=== PATIENT | female | born 1935 | race Caucasian/White ===

== ENCOUNTER → 2017-04-21 07:06 | Outpatient (CLI) | payer MEDICARE, OTHER, SELFPAY ==
[2017-04-21 09:34] LABS: Free T3 2.4 pg/mL (2.18-3.98); T4 Free Direct 1.42 ng/dL (0.76-1.46)
== END ==
PROVIDERS: Family Provider Family Medicine; PCP Family Medicine; Visit Provider Family Medicine
DX: E89.0 Postprocedural hypothyroidism (principal)
CPT/HCPCS: 36415; 84439; 84443; 84481

== ENCOUNTER → 2017-06-26 07:15 | Outpatient (CLI) | payer MEDICARE, OTHER, SELFPAY ==
[2017-06-26 09:04] LABS: Calcium,Total 8.6 mg/dL (8.5-10.1); T4 Free Direct 1.07 ng/dL (0.76-1.46); Thyroid Stim Hormone (TSH) 2.26 uIU/mL (0.358-3.74)
[2017-06-27 11:50] LABS: PTHIN 47.3 pg/mL (18.4-80.1)
== END ==
PROVIDERS: Family Provider Family Medicine; PCP Family Medicine; Visit Provider Family Medicine
DX: E03.2 Hypothyroidism due to medicaments and other exogenous substances (principal); E83.52 Hypercalcemia
CPT/HCPCS: 36415; 82310; 83970; 84439; 84443

== ENCOUNTER → 2018-02-04 10:15 | Outpatient (CLI) | payer MEDICARE, OTHER, SELFPAY ==
--- NOTE | 2018-02-04 10:21 | BI_ITS ---
MAMMOGRAPHY - BILATERAL SCREENING REASON FOR EXAM: Female, 82 years old. Routine annual screening examination. PERTINENT HISTORY: Non-contributory. TECHNIQUE: Digital bilateral breast jewel (3D mammographic acquisition) in the CC and MLO projections. 2-D mediolateral oblique (MLO) and craniocaudad (CC) views of both breasts were obtained. CAD: Full Field Digital Mammography with Computer Added Detection was performed. COMPARISON: Comparison is made with prior study dated February 03, 2017 and February 01, 2016. FINDINGS: Breast Composition: There are scattered areas of fibroglandular density. There are no dominant masses or suspicious calcifications. Stable appearance of the small bilateral axillary lymph nodes. No other significant abnormalities are identified. There has been no significant change since the prior study. BI/SCREENING MAMM (CAD), BILAT IMPRESSION: Stable bilateral screening mammogram. Yearly follow-up mammogram recommended. (A) ASSESSMENT CATEGORY: BIRADS Category 2: Benign. A letter regarding these results will be sent to the patient by the facility within 30 days. Approximately 10% of breast cancers are not detected by mammography. A normal mammogram should not delay biopsy of a clinically suspicious abnormality. [id number] Electronically Signed: Jaspreet Gustafson MD at 11:31 EST Tel [phone], Service support ,
== END ==
PROVIDERS: Family Provider Family Medicine; PCP Family Medicine; Visit Provider Family Medicine
DX: Z12.31 Encounter for screening mammogram for malignant neoplasm of breast (principal)
CPT/HCPCS: 77063; 77067

== ENCOUNTER → 2018-03-30 11:08 | Outpatient (CLI) | payer MEDICARE, OTHER, SELFPAY ==
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
[2018-03-30 15:51] LABS: Vitamin D,25 Hydroxy 41.3 ng/mL (29.95-100.01)
[2018-03-30 15:55] LABS: ALB/GLOB Ratio 1.3 RATIO (0.9-2.4); AST(SGOT) 18 U/L (15-37); Alanine Aminotransfer ALT/SGPT 30 U/L (13-56); Albumin, Serum 3.9 g/dL (3.2-5.0); Alkaline Phosphatase 66 U/L (45-117); Anion Gap 9 (5-15); BUN 26 mg/dL (7-18); BUN/Creat Ratio 34.7 RATIO (10-20); Calcium,Total 8.8 mg/dL (8.5-10.1); Chloride 108 mmol/L (98-107); Cholesterol 194 mg/dL (200); Creatinine, Serum 0.75 mg/dL (0.55-1.02); EST Glomerular Filtration Rate 79 mL/min (>60); Est Glom Filt Rate - Afr Amer 96 mL/min (>60); Globulin 3.1 g/dL (2.2-4.2); Glucose 89 mg/dL (74-106); High Density Lipoprotein 79 mg/dL; Potassium 4.1 mmol/L (3.5-5.1); Sodium Level 143 mmol/L (136-145); T4 Free Direct 1.29 ng/dL (0.76-1.46); Thyroid Stim Hormone (TSH) 1.72 uIU/mL (0.358-3.74); Triglycerides 108 mg/dL; Very Low Density Lipoprotein 22 mg/dL (5-40)
[2018-03-30 16:19] LABS: Absolute Lymphocyte Count 0.92 X10^3/ul (0.83-4.51); Absolute Neutrophil Count 4.4 X10^3/uL (2.0-7.7); Basophil# 0.04 X10^3/uL; Basophil% 0.7 % (0-1); Eosinophil# 0.09 X10^3/uL; Eosinophils% 1.5 % (0-5); Hematocrit 44.6 % (37-47); Hemoglobin 14.2 g/dl (12.0-15.0); Lymphocyte # 0.92 X10^3/ul (4.0); Lymphocyte % 15.6 % (19-41); Mean Corp Hgb Conc 31.8 g/gl (32-36); Mean Corpuscular Hgb 30.5 pg (27.0-32.0); Mean Corpuscular Volume 95.9 fL (81-99); Mean Platelet Vol. 10.6 fl (6.2-12.0); Monocyte# 0.39 X10^3/uL; Monocyte% 6.6 % (0-10); Neutrophil # 4.44 X10^3/uL (2.7-7.7); Neutrophil % 75.4 % (47-70); Platelet Count 268 K/mm3 (150-450); RBC Distribution Width CV 13.6 % (11.6-14.6); RBC Distribution Width SD 46.3 fl (35.1-43.9); Red Blood Count 4.65 M/mm3 (4.2-5.4); White Blood Count 5.9 K/mm3 (4.4-11.0)
[2018-03-30 16:35] LABS: POSITIVE COUNT NO; POSITIVE DIFFERENTIAL NO; POSITIVE MORPHOLOGY NO
== END ==
PROVIDERS: Family Provider Family Medicine; PCP Family Medicine; Referring Provider Family Medicine; Visit Provider Family Medicine
DX: I65.29 Occlusion and stenosis of unspecified carotid artery (principal); E78.00 Pure hypercholesterolemia, unspecified; E03.2 Hypothyroidism due to medicaments and other exogenous substances; M85.80 Other specified disorders of bone density and structure, unspecified site; Z51.81 Encounter for therapeutic drug level monitoring; M79.601 Pain in right arm
CPT/HCPCS: 36415; 73090; 80053; 80061; 82306; 84439; 84443; 85025

== ENCOUNTER → 2019-01-06 12:35 | Outpatient (CLI) | payer MEDICARE, OTHER, SELFPAY ==
--- NOTE | 2019-01-06 12:37 | CDU_ITS ---
Reason For Study: carotid stenosis Rt. Velocities/BP Lt. Velocities/BP Prox CCA 95.0/15.5 cm/sec. Prox CCA 100.2/14.2 cm/sec. Mid CCA 93.7/18.1 cm/sec. Mid CCA 94.1/15.5 cm/sec. Dist CCA 76.8/14.2 cm/sec. Dist CCA 87.9/14.2 cm/sec. Prox ICA 70.3/19.4 cm/sec. Prox ICA 83.4/13.4 cm/sec. Mid ICA 135.0/29.0 cm/sec. Mid ICA 102.0/16.2 cm/sec. Dist ICA 158.2/26.7 cm/sec. Dist ICA 157.6/30.8 cm/sec. Rt. ICA/CCA = 158.2/93.7=1.7. Lt. ICA/CCA = 157.6/100.2=1.6. Prox ECA 88.5/14.2 cm/sec. Prox ECA 102.1/0.0 cm/sec. Rt. Vert. 58.1/10.9 cm/sec. Lt. Vert. 60.1/9.7 cm/sec. Right Extracranial There is intimal thickening but no significant atherosclerotic plaque noted in the right common carotid artery. There is heterogeneous, irregular atherosclerotic plaque noted in the right internal carotid artery. The tortuous nature of the right internal carotid artery may result in flow velocities overestimating the degree of stenosis. There is intimal thickening but no significant atherosclerotic plaque noted in the right external carotid artery. Antegrade flow is noted in the right vertebral artery. Left Extracranial There is homogeneous, smooth atherosclerotic plaque noted in the left common carotid artery. There is heterogeneous, smooth atherosclerotic plaque noted in the left internal carotid artery. The tortuous nature of the left internal carotid artery may result in flow velocities overestimating the degree of stenosis. There is intimal thickening but no significant atherosclerotic plaque noted in the left external carotid artery. Antegrade flow is noted in the left vertebral artery. Procedure Carotid Duplex [id number]. The exam was diagnostic. Exam performed in department. Interpretation Summary Minimal irregular plague proximal right internal carotid. Very tortuous right internal carotid with 50-69% stenosis. <50% stenosis right external carotid Irregular plague within the proximal left internal carotid with tortuosity noted. 50-69% stenosis left distal internal carotid <50% stenosis left external carotid Patent, antegrade, <50% stenosis bilateral vertebrals Degree of bilateral internal carotid stenosis may be over-estimated secondary to the tortuosity present and the velocity elevations were not detected in the proximal internal carotids bilaterally No change from 09/16/16 Ordering Physician: Fredrick Frank Referring Physician: Fredrick Frank Performed By: Tashia Bacon, JOAQUÍN, RVT
== END ==
PROVIDERS: Family Provider Family Medicine; PCP Family Medicine; Referring Provider Family Medicine; Visit Provider Family Medicine
DX: I65.22 Occlusion and stenosis of left carotid artery (principal)
CPT/HCPCS: 93880

== ENCOUNTER → 2019-02-05 10:52 | Outpatient (CLI) | payer MEDICARE, OTHER, SELFPAY ==
--- NOTE | 2019-02-05 10:55 | BI_ITS ---
MAMMOGRAPHY - BILATERAL SCREENING REASON FOR EXAM: Female, 83 years old. Routine annual screening examination. PERTINENT HISTORY: Non-contributory. TECHNIQUE: Digital bilateral breast todd (3D mammographic acquisition) in the CC and MLO projections. 2-D mediolateral oblique (MLO) and craniocaudad (CC) views of both breasts were obtained. CAD: Full Field Digital Mammography with Computer Added Detection was performed. COMPARISON: Comparison is made with prior study February 04, 2018 and February 03, 2017. FINDINGS: Breast Composition: There are scattered areas of fibroglandular density. There are no dominant masses or suspicious calcifications. Stable secretory calcifications bilaterally. No other significant abnormalities are identified. There has been no significant change since the prior study. BI/SCREEN MAMM (CAD) W/TODD BILAT IMPRESSION: Stable bilateral screening mammogram. Yearly follow-up mammogram recommended. (A) ASSESSMENT CATEGORY: BIRADS Category 2: Benign. A letter regarding these results will be sent to the patient by the facility within 30 days. Approximately 10% of breast cancers are not detected by mammography. A normal mammogram should not delay biopsy of a clinically suspicious abnormality. [id number] Electronically Signed: Jaspreet Gustafson, at 13:04 EST , Service support ,
== END ==
PROVIDERS: Family Provider Family Medicine; PCP Family Medicine; Referring Provider Family Medicine; Visit Provider Family Medicine
DX: Z12.31 Encounter for screening mammogram for malignant neoplasm of breast (principal)
CPT/HCPCS: 77063; 77067

== ENCOUNTER → 2019-02-23 09:42 | Outpatient (CLI) | payer MEDICARE, OTHER, SELFPAY ==
--- NOTE | 2019-02-23 09:48 | BD_ITS ---
STUDY: DUAL ENERGY X-RAY ABSORPTIOMETRY / DXA REASON FOR EXAM: Female, 83 years old. Early menopause. Loss of height. TECHNIQUE: Bone Mineral Density (BMD) measurements of lumbar spine and bilateral hips were obtained. COMPARISON: Comparison is made with prior study dated February 18, 2017. FINDINGS: Lumbar Spine (L1-L4): g/cm2 (0.934) / T-score (-1.9) / Z-score (-0.1) Findings are suggestive of osteopenia with a moderate fracture risk. Left Femur Total: g/cm2 (0.830) / T-score (-1.4) / Z-score (0.7) Left Femoral Neck: g/cm2 (0.799) / T-score (-1.7) / Z-score (0.5) Right Femur Total: g/cm2 (0.795) / T-score (-1.7) / Z-score (0.4) Right Femoral Neck: g/cm2 (0.777) / T-score (-1.9) / Z-score (0.3) The T-Scores on the most recent prior examination were: Lumbar Spine (L1-L4): There has been worsening of bone density since the previous examination. Left Femur Total: which represents a worsening of 2%. Right Femur Total: which represents a worsening of 2.6%. BD/Dexa Bone Density Study IMPRESSION: The patient is considered osteopenic as outlined below according to World Dick Organization (WHO) criteria with a moderate fracture risk. Reference Information: The T-score is the number of standard deviations above or below the standard which is normal for young adults at their peak bone mineral density. The World Health Organization (WHO) interprets the T-scores as follows: Above -1 Normal bone density Between -1 and -2.5 Osteopenia Equal to / or below -2.5 Osteoporosis As a practical clinical guideline, osteopenia may be graded as follows: Mild -1 through -1.5 Moderate -1.6 through -2.0 Severe -2.1 through -2.4 The Z-score is the number of standard deviations above or below age-matched controls. A Z-score of less than -1.5 would be considered abnormal. References: 1. NIH Osteoporosis and Related Bone Diseases http://www.osteo.org 2. International Society for Clinical Densitometry http://www.iscd.org 3. National Osteoporosis Foundation http://www.nof.org Electronically Signed: Jaspreet Gustafson, at 12:46 EST , Service support ,
== END ==
PROVIDERS: Family Provider Family Medicine; PCP Family Medicine; Referring Provider Family Medicine; Visit Provider Family Medicine
DX: M81.0 Age-related osteoporosis without current pathological fracture (principal); Z78.0 Asymptomatic menopausal state
CPT/HCPCS: 77080

== ENCOUNTER → 2019-03-29 08:42 | Outpatient (CLI) | payer MEDICARE, OTHER, SELFPAY ==
[2019-03-29 12:24] LABS: Absolute Lymphocyte Count 1.06 X10^3/uL (0.83-4.51); Absolute Neutrophil Count 3.1 X10^3/uL (2.0-7.7); Basophil# 0.03 X10^3/uL; Basophil% 0.7 % (0-1); Eosinophil# 0.11 X10^3/uL; Eosinophils% 2.4 % (0-5); Hematocrit 43.9 % (37-47); Hemoglobin 13.8 g/dL (12.0-15.0); Lymphocyte # 1.06 X10^3/ul (4.0); Lymphocyte % 23.3 % (19-41); Mean Corp Hgb Conc 31.4 g/dL (32-36); Mean Corpuscular Hgb 30.1 pg (27.0-32.0); Mean Corpuscular Volume 95.6 fL (81-99); Mean Platelet Vol. 9.9 fl (6.2-12.0); Monocyte# 0.29 X10^3/uL; Monocyte% 6.4 % (0-10); NRBC Flagged by Analyzer 0 % (0-5); Neutrophil # 3.05 X10^3/uL (2.7-7.7); Platelet Count 254 K/mm3 (150-450); RBC Distribution Width CV 13.2 % (11.6-14.6); RBC Distribution Width SD 46.7 fl (35.1-43.9); Red Blood Count 4.59 M/mm3 (4.2-5.4); White Blood Count 4.6 K/mm3 (4.4-11.0)
[2019-03-29 12:58] LABS: Vitamin D,25 Hydroxy 41.7 ng/mL (29.95-100.01)
[2019-03-29 13:06] LABS: AST(SGOT) 18 U/L (15-37); Alanine Aminotransfer ALT/SGPT 27 U/L (13-56); Albumin, Serum 3.3 g/dL (3.2-5.0); Alkaline Phosphatase 57 U/L (45-117); Anion Gap 4 (5-15); BUN 19 mg/dL (7-18); BUN/Creat Ratio 25.7 RATIO (10-20); Calcium,Total 8.8 mg/dL (8.5-10.1); Chloride 110 mmol/L (98-107); Cholesterol 205 mg/dL (200); Creatinine, Serum 0.74 mg/dL (0.55-1.02); EST Glomerular Filtration Rate 80 mL/min (>60); Est Glom Filt Rate - Afr Amer 97 mL/min (>60); Globulin 3.3 g/dL (2.2-4.2); Glucose 94 mg/dL (74-106); High Density Lipoprotein 79 mg/dL; Protein, Total 6.6 g/dL (6.4-8.2); Sodium Level 142 mmol/L (136-145); T4 Free Direct 1.12 ng/dL (0.76-1.46); Thyroid Stim Hormone (TSH) 8.44 uIU/mL (0.358-3.74); Triglycerides 101 mg/dL; Very Low Density Lipoprotein 20 mg/dL (5-40)
== END ==
LOC: LAB.FUTURE 08:42 → BFHLAB 04-02 14:30
PROVIDERS: Family Provider Family Medicine; PCP Family Medicine; Visit Provider Family Medicine
DX: I65.29 Occlusion and stenosis of unspecified carotid artery (principal); E78.00 Pure hypercholesterolemia, unspecified; E03.2 Hypothyroidism due to medicaments and other exogenous substances; M85.80 Other specified disorders of bone density and structure, unspecified site; Z51.81 Encounter for therapeutic drug level monitoring
CPT/HCPCS: 36415; 80053; 80061; 82306; 84439; 84443; 85025

== ENCOUNTER → 2019-04-21 13:45 | Outpatient (CLI) | payer MEDICARE, OTHER, SELFPAY ==
--- NOTE | 2019-04-21 15:12 | NEURO ---
NCS and/or EMG Patient Report Ordering Doctor: Fredrick Frank DATE OF SERVICE: 04/21/19 Manuela Krause is an 83 year old female who presents for electrodiagnostic testing of the right upper limb. She reports pain from the elbow to the fingers. She denies any numbness. She reports having right shoulder pain secondary to a rotator cuff tear. Electrodiagnostic findings: The right median motor nerve demonstrates normal distal latency and amplitude with borderline reduced conduction velocity. Normal right ulnar motor response, including conduction across the elbow. Normal median ulnar F waves. Normal sensory responses. On needle EMG, all muscles tested in the right upper limb as well as the right cervical paraspinal showed no evidence of denervation with normal motor unit action potentials. Electrodiagnostic assessment: This is a normal electrodiagnostic study of the right upper limb. There is no electrodiagnostic evidence for peripheral neuropathy, including carpal tunnel syndrome. There is no electrodiagnostic evidence for cervical radiculopathy. If there are any further questions, please do not hesitate to contact me.
== END ==
PROVIDERS: Family Provider Family Medicine; PCP Family Medicine; Referring Provider Family Medicine; Visit Provider Family Medicine
DX: M79.601 Pain in right arm (principal)
CPT/HCPCS: 95886; 95910

== ENCOUNTER → 2019-05-14 14:32 | Outpatient (CLI) | payer MEDICARE, OTHER, SELFPAY ==
[2019-05-14 16:18] LABS: T4 Free Direct 1.06 ng/dL (0.76-1.46); Thyroid Stim Hormone (TSH) 3.65 uIU/mL (0.358-3.74)
== END ==
PROVIDERS: Family Provider Family Medicine; PCP Family Medicine; Visit Provider Family Medicine
DX: E03.2 Hypothyroidism due to medicaments and other exogenous substances (principal)
CPT/HCPCS: 36415; 84439; 84443

== ENCOUNTER 2019-05-28 15:00 | Outpatient (RCR) | payer MEDICARE, OTHER, SELFPAY ==
--- NOTE | 2019-04-30 13:14 | HP.PTEVAL_ITS ---
Patient's Visit Information ADA GOOD is a 83 year old F referred to Physical Therapy by Fredrick Frank DO with a diagnosis of R forearm calcific tendonitis. Date of Evaluation: 04/30/19 Physical Therapist: Jones Cooley, PT, ATC - Visit Plan Frequency: 2-3x /Week Duration: 4 Weeks Plan: R wrist extensor stretching, DTR, US, and HEP - Subjective Findings: Pt reports she has had lower R arm pain for approximately 6 months. Pt reports she has a torn rotator cuff in her R UE but has been told this pain is not from that injury. Pt reports she has been receiving injections in her shoulder for that pain. Pt reports she had to take care of her ailing until he in October of 2018, and notes that may have casued her pain. Pt also notes she fell in May of 2016 and landed on her R UE noting that may have caused this pain as well. Pt notes she is R hand dominant. Pt reports she experiences pain while playing on her nook, and has to adjust positions to aid with her pain. Pt reports she is able to perform all of her IADL's I, but notes she feels pain during the activity. 6/10 pain currently, 10/10 at worst. Pt reports sleep difficulty secondary to pain. - Pain R lower arm pain Pain Intensity (Out of 10): 6 Pain Intensity Range: 10 - Objective Neuro: B UE sensation is WNL to light touch. B bicepital reflex= 2/3. Palpation: Pt is sore along the extensor tendon barron of the R forearm. No obvious deformity present. ROM: L wrist flex= 73, ext= 60; R wrist flex= 40, ext= 55 degrees. MMT: R wwrist ext= 4-/5 and is painful. All other B UE MMT 5/5 throughout - Goals Goal 1:: Decrease R elbow pain x 50% to aid with IADL's Goal Time Frame: 4-6 Weeks Goal 2:: Increase R wrist extension strength x 1 grade to aid with IADL's Goal Time Frame: 4-6 Weeks Goal 3:: Increase R wrist flexion ROM x 5-10 degrees to aid with IADL's Goal Time Frame: 4-6 Weeks Goal 4:: I with HEP Goal Time Frame: 4-6 Weeks - Rehabilitation Potential Physical Therapy Diagnosis: R forearm pain, weakness, and limited ROM secondary to calcific tendonitis Rehabilitation Potential: Good - Anticipated Interventions Patient/Client Instruction: Educate patient on: Condition, Plan of Care For the Purpose of:: To improve self management Therapeutic Exercise to Include: Flexibilty training, Passive ROM, Active ROM For the Purpose of:: To decrease pain, To increase ROM Manual Therapy Techniques to Include: Soft tissue mobilization For the Purpose of:: To decrease pain, To increase ROM Ultrasound (thermal/non thermal): Yes For the Purpose of:: To decrease pain Thank you for the opportunity to evaluate your patient. For Medicare and Medicare HMO plans, please review the plan of care and approve it. It will need to be FAXED BACK to us at [phone] for Medicare purposes. For Medicare only, by signing this I certify the plan of care. Please let me know if there are questions or concerns regarding this plan of care. Physician Signature: Date:
--- NOTE | 2019-05-28 15:23 | HP.PTDCSUM ---
HP - PT D/C Summary It has been my pleasure to treat ADA GOOD referred by Fredrick Frank DO, with the diagnosis of R forearm calcific tendonitis for a total of 8 visit(s). Discharge Date: Please see the following information for a summary of their discharge status. - Subjective Subjective: I am feeling much better now - Pain R lower arm pain Pain Intensity (Out of 10): 1 - Overall Improvement % Improvement: 100 - Objective Objective/Function: R elbow pain 04/02. R wrist ext MMT 07/26. R wrist flexion ROM 70 degrees. Pt is I with HEP. Rx goals achieved - Goals Goal 1:: Decrease R elbow pain x 50% to aid with IADL's Goal Progress: Goal Met Goal 2:: Increase R wrist extension strength x 1 grade to aid with IADL's Goal Progress: Goal Met Goal 3:: Increase R wrist flexion ROM x 5-10 degrees to aid with IADL's Goal Progress: Goal Met Goal 4:: I with HEP Goal Progress: Goal Met - Plan Plan: Discharge - D/C Information If there are questions or concerns regarding this patient's physical therapy, please feel free to call me at [phone]. Thank you for the referral of this patient. Sincerely, Jones Cooley, PT, ATC
== END 2019-05-28 19:00 | disposition home or self-care (01) ==
LOC: PT 15:00
PROVIDERS: PCP Family Medicine; Referring Provider Family Medicine; Visit Provider Family Medicine
DX: M65.231 Calcific tendinitis, right forearm (principal)
CPT/HCPCS: 97035; 97110; 97161; 97164

== ENCOUNTER → 2019-06-02 10:33 | Outpatient (CLI) | payer MEDICARE, OTHER, SELFPAY ==
[2019-06-02 12:31] LABS: T4 Free Direct 1.34 ng/dL (0.76-1.46); Thyroid Stim Hormone (TSH) 2.11 uIU/mL (0.358-3.74)
== END ==
PROVIDERS: PCP Family Medicine; Referring Provider Internal Medicine Endocrinology, Diabetes & Metabolism; Visit Provider Internal Medicine Endocrinology, Diabetes & Metabolism
DX: E89.0 Postprocedural hypothyroidism (principal)
CPT/HCPCS: 36415; 84439; 84443

== ENCOUNTER → 2019-08-04 09:23 | Outpatient (CLI) | payer MEDICARE, OTHER, SELFPAY ==
[2019-08-04 12:49] LABS: T4 Free Direct 1.25 ng/dL (0.76-1.46); Thyroid Stim Hormone (TSH) 0.82 uIU/mL (0.358-3.74)
== END ==
PROVIDERS: PCP Family Medicine; Visit Provider Internal Medicine Endocrinology, Diabetes & Metabolism
DX: E89.0 Postprocedural hypothyroidism (principal)
CPT/HCPCS: 36415; 84439; 84443

== ENCOUNTER → 2020-02-07 12:35 | Outpatient (CLI) | payer MEDICARE, OTHER, SELFPAY ==
--- NOTE | 2020-02-07 12:38 | BI_ITS ---
MAMMOGRAPHY - BILATERAL SCREENING REASON FOR EXAM: Female, 84 years old. Routine annual screening examination. PERTINENT HISTORY: Non-contributory. TECHNIQUE: Digital bilateral breast todd (3D mammographic acquisition) in the CC and MLO projections. 2-D mediolateral oblique (MLO) and craniocaudad (CC) views of both breasts were obtained. CAD: Full Field Digital Mammography with Computer Added Detection was performed. COMPARISON: Comparison is made with prior study dated 02/05/2019 and 02/04/2018. FINDINGS: Breast Composition: The breasts are almost entirely fatty. There are no dominant masses or suspicious calcifications. Stable secretory calcifications in both breasts. No other significant abnormalities are identified. There has been no significant change since the prior study. BI/SCREEN MAMM (CAD) W/TODD BILAT IMPRESSION: Stable bilateral screening mammogram. Yearly follow-up mammogram recommended. (A) ASSESSMENT CATEGORY: BIRADS Category 2: Benign. A letter regarding these results will be sent to the patient by the facility within 30 days. Approximately 10% of breast cancers are not detected by mammography. A normal mammogram should not delay biopsy of a clinically suspicious abnormality. [id number] Electronically Signed: Jaspreet Gustafson, at 13:37 EST , Service support ,
== END ==
PROVIDERS: PCP Family Medicine; Referring Provider Family Medicine; Visit Provider Family Medicine
DX: Z12.31 Encounter for screening mammogram for malignant neoplasm of breast (principal); R89.0 Abnormal level of enzymes in specimens from other organs, systems and tissues; R94.6 Abnormal results of thyroid function studies
CPT/HCPCS: 36415; 77063; 77067; 84443

== ENCOUNTER → 2020-03-27 09:08 | Outpatient (CLI) | payer MEDICARE, OTHER, SELFPAY ==
[2020-03-27 12:54] LABS: Absolute Lymphocyte Count 1.11 X10^3/uL (0.83-4.51); Absolute Neutrophil Count 2.9 X10^3/uL (2.0-7.7); Basophil# 0.04 X10^3/uL; Basophil% 0.9 % (0-1); Eosinophil# 0.08 X10^3/uL; Eosinophils% 1.8 % (0-5); Hematocrit 41.9 % (37-47); Hemoglobin 13.3 g/dL (12.0-15.0); Lymphocyte # 1.11 X10^3/ul (4.0); Lymphocyte % 24.8 % (19-41); Mean Corp Hgb Conc 31.7 g/dL (32-36); Mean Corpuscular Hgb 30.4 pg (27.0-32.0); Mean Corpuscular Volume 95.7 fL (81-99); Mean Platelet Vol. 9.8 fl (6.2-12.0); Monocyte% 6.7 % (0-10); NRBC Flagged by Analyzer 0 % (0-5); Neutrophil # 2.94 X10^3/uL (2.7-7.7); Neutrophil % 65.6 % (47-70); Platelet Count 260 K/mm3 (150-450); RBC Distribution Width CV 13.1 % (11.6-14.6); RBC Distribution Width SD 46.3 fl (35.1-43.9); Red Blood Count 4.38 M/mm3 (4.2-5.4); White Blood Count 4.5 K/mm3 (4.4-11.0)
[2020-03-27 13:15] LABS: ALB/GLOB Ratio 1.1 RATIO (0.9-2.4); AST(SGOT) 13 U/L (15-37); Alanine Aminotransfer ALT/SGPT 27 U/L (13-56); Albumin, Serum 3.5 g/dL (3.2-5.0); Alkaline Phosphatase 60 U/L (45-117); Anion Gap 9 (5-15); BUN 20 mg/dL (7-18); BUN/Creat Ratio 29.5 RATIO (10-20); Calcium,Total 8.5 mg/dL (8.5-10.1); Chloride 109 mmol/L (98-107); Cholesterol 218 mg/dL (200); Creatinine, Serum 0.68 mg/dL (0.55-1.02); EST Glomerular Filtration Rate 88 mL/min (>60); Est Glom Filt Rate - Afr Amer 107 mL/min (>60); Globulin 3.2 g/dL (2.2-4.2); Glucose 88 mg/dL (74-106); High Density Lipoprotein 80 mg/dL; Potassium 3.8 mmol/L (3.5-5.1); Protein, Total 6.7 g/dL (6.4-8.2); Sodium Level 142 mmol/L (136-145); Triglycerides 99 mg/dL; Very Low Density Lipoprotein 20 mg/dL (5-40)
[2020-03-27 15:58] LABS: Vitamin D,25 Hydroxy 29.6 ng/mL
[2020-03-27 16:08] LABS: Microalbumin,Random Urine 25.8 mg/L (NO RANGE EST.); Microalbumin:Creatinine Ratio 13.7 mg/g CRE (<30 mg/g CRE)
== END ==
PROVIDERS: PCP Family Medicine; Visit Provider Family Medicine
DX: I10 Essential (primary) hypertension (principal); E78.00 Pure hypercholesterolemia, unspecified; E55.9 Vitamin D deficiency, unspecified; Z51.81 Encounter for therapeutic drug level monitoring
CPT/HCPCS: 36415; 80053; 80061; 82043; 82306; 82570; 85025

== ENCOUNTER 2020-04-13 13:35 | Outpatient (RCR) | payer MEDICARE, OTHER, SELFPAY | END 2020-04-13 23:59 | LOC: IMMUN 13:35 | PROVIDERS: PCP Family Medicine; Visit Provider Family Medicine | DX: Z23 Encounter for immunization (principal) | CPT/HCPCS: 0011A; 0012A; 91301 ==

== ENCOUNTER 2020-05-10 18:27 | Emergency (ER) | payer OTHER, MEDICARE, SELFPAY ==
[2020-05-10 18:28] VITALS: BP 155/74; PULSE 82; RESP 16; TEMP 35.8; O2SAT 97; BMI 24.0
[2020-05-10 18:30] VITALS: BP 155/74; PULSE 85; RESP 16; TEMP 35.8; O2SAT 97
--- NOTE | 2020-05-10 19:22 | CT_ITS ---
STUDY: CT CERVICAL SPINE WITHOUT CONTRAST REASON FOR EXAM: Female, 84 years old. REAR-ENDED, NO COMPLAINTS RADIATION DOSAGE (If Supplied By Facility): CTDIvol = ( 11.85 ) mGy, DLP = ( 224.12 ) mGycm TECHNIQUE: High resolution transaxial imaging was performed without contrast material. Sagittal and coronal images were reconstructed. Individualized dose optimization techniques were used for this CT. COMPARISON: None FINDINGS: Normal craniovertebral junction. Normal anterior atlantoaxial articulation. Normal odontoid process. There is an exaggerated cervical lordosis. No acute fracture. Normal vertebral bodies and posterior osseous elements. C2-3: Normal endplates. Normal disc height and morphology. Normal central canal and intervertebral neuroforamina. C3-4: Normal endplates. Normal disc height and morphology. Facet spurring. Normal central canal and intervertebral neuroforamina. C4-5: Normal endplates. Normal disc height and morphology. Facet spurring on the right more than the left. Normal central canal and intervertebral neuroforamina. C5-6: Normal endplates. Normal disc height and morphology. Mild facet spurring. Normal central canal and intervertebral neuroforamina. C6-7: Mild spurring. Normal central canal and intervertebral neuroforamina. C7-T1: Normal endplates. Normal disc height and morphology. Normal central canal and intervertebral neuroforamina. Normal visualized soft tissue structures. There are atherosclerotic calcifications. CT/Spine Cervical without Contras IMPRESSION: Multilevel degenerative changes, as described above. Electronically Signed: Darell Agosto MD at 20:00 EST , Service support ,
--- NOTE | 2020-05-10 19:22 | CT_ITS ---
STUDY: CT BRAIN WITHOUT CONTRAST REASON FOR EXAM: Female, 84 years old. REAR-ENDED, NO COMPLAINTS RADIATION DOSAGE (If Supplied By Facility): CTDIvol = ( 44.99 ) mGy, DLP = ( 779.24 ) mGycm TECHNIQUE: Transaxial CT imaging of the brain was performed without administration of intravenous contrast material. Individualized dose optimization techniques were used for this CT. COMPARISON: No relevant priors. FINDINGS: Normal soft tissue structures. Normal calvarium. Normal size ventricles and extra-axial spaces for the patient''s age. There are mild areas of decreased attenuation within the white matter tracts of the supratentorial brain, consistent with microvascular disease changes. Normal basal ganglia and thalami. Normal brainstem. Normal cerebellum. There is no intracranial hemorrhage. There are no findings of an acute ischemic infarction. Normal visualized paranasal sinuses. CT/Brain/Head without Contrast IMPRESSION: Chronic involutional changes of the brain. Electronically Signed: Darell Agosto MD at 19:55 EST , Service support ,
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
[2020-05-10 21:05] VITALS: PULSE 68; RESP 18; O2SAT 98
== END 2020-05-10 21:06 | disposition home or self-care (01) ==
PROVIDERS: Emergency Provider Student in an Organized Health Care Education/Training Program; PCP Family Medicine
DX: S16.1XXA Strain of muscle, fascia and tendon at neck level, initial encounter (principal); R51.9 Headache, unspecified; E78.5 Hyperlipidemia, unspecified; K21.9 Gastro-esophageal reflux disease without esophagitis; Z87.891 Personal history of nicotine dependence; V89.2XXA Person injured in unspecified motor-vehicle accident, traffic, initial encounter
CPT/HCPCS: 70450; 72125; 99282

== ENCOUNTER → 2020-08-03 09:31 | Outpatient (CLI) | payer OTHER, MEDICARE, SELFPAY ==
[2020-08-03 10:56] LABS: T4 Free Direct 1.19 ng/dL (0.76-1.46); Thyroid Stim Hormone (TSH) 1.07 uIU/mL (0.358-3.74)
== END ==
LOC: MTLAB 09:34
PROVIDERS: PCP Family Medicine; Referring Provider Internal Medicine Endocrinology, Diabetes & Metabolism; Visit Provider Internal Medicine Endocrinology, Diabetes & Metabolism
DX: E89.0 Postprocedural hypothyroidism (principal)
CPT/HCPCS: 36415; 84439; 84443

== ENCOUNTER → 2021-01-15 12:40 | Outpatient (CLI) | payer MEDICARE, OTHER, SELFPAY ==
--- NOTE | 2021-01-15 12:43 | CDU_ITS ---
Reason For Study: Reassess atherosclerosis Rt. Velocities/BP Lt. Velocities/BP Prox CCA 72.1/12.1 cm/sec. Prox CCA 84.9/19 cm/sec. Mid CCA 91.7/16 cm/sec. Mid CCA 76.1/14.6 cm/sec. Dist CCA 72.1/13.4 cm/sec. Dist CCA 65.1/14.6 cm/sec. Prox ICA 66.9/13.4 cm/sec. Prox ICA 57.5/15.7 cm/sec. Mid ICA 100.8/29.1 cm/sec. Mid ICA 95.6/25 cm/sec. Dist ICA 132.1/37.1 cm/sec. Dist ICA 118.3/28.6 cm/sec. Rt. ICA/CCA = 1.83. Lt. ICA/CCA = 1.55. Prox ECA 116.4/3 cm/sec. Prox ECA 77.2/2.5 cm/sec. Rt. Vert. 47.6/8 cm/sec. Lt. Vert. 55.3/14.6 cm/sec. Right Extracranial There is intimal thickening but no significant atherosclerotic plaque noted in the right common carotid artery. There is heterogeneous, irregular atherosclerotic plaque noted in the right internal carotid artery. The tortuous nature of the right internal carotid artery may result in flow velocities overestimating the degree of stenosis. There is heterogeneous, irregular atherosclerotic plaque noted in the right external carotid artery. Antegrade flow is noted in the right vertebral artery. Left Extracranial There is homogeneous, smooth atherosclerotic plaque noted in the left common carotid artery. There is heterogeneous, irregular atherosclerotic plaque noted in the left internal carotid artery. The tortuous nature of the left internal carotid artery may result in flow velocities overestimating the degree of stenosis. There is heterogeneous, irregular atherosclerotic plaque noted in the left external carotid artery. Antegrade flow is noted in the left vertebral artery. Procedure Carotid Duplex [id number]. This is a Carotid Duplex examination using B-mode, color flow and specral Doppler. Exam performed in department. VL/Carotid Duplex Ultrasound Interpretation Summary Mild irregular plaque at the proximal right internal carotid artery with less t ramos 50% stenosis. Distal right internal carotid flow velocity slight elevated but this is in an a rica of tortuosity and likely this overestimates any degree of stenosis. I still estimate at less than 50% stenosis. Less than 50% stenosis right external carotid artery Irregular plaque in the proximal left internal carotid artery with less than 50 % stenosis Less than 50% stenosis left external carotid artery Patent antegrade vertebral arteries bilaterally Likely no hemodynamically significant change from the previous examination of O ctober Ordering Physician: Fredrick Frank Referring Physician: Fredrick Frank Performed By: Apple Harley RVT
== END ==
PROVIDERS: PCP Family Medicine; Referring Provider Family Medicine; Visit Provider Family Medicine
DX: I65.23 Occlusion and stenosis of bilateral carotid arteries (principal)
CPT/HCPCS: 93880

== ENCOUNTER → 2021-02-07 10:39 | Outpatient (CLI) | payer MEDICARE, OTHER, SELFPAY ==
--- NOTE | 2021-02-07 10:42 | BI_ITS ---
MAMMOGRAPHY - BILATERAL SCREENING REASON FOR EXAM: Female, 85 years old. Routine annual screening examination. PERTINENT HISTORY: Sister with breast cancer. TECHNIQUE: Digital bilateral breast todd (3D mammographic acquisition) in the CC and MLO projections. 2-D mediolateral oblique (MLO) and craniocaudad (CC) views of both breasts were obtained. CAD: Full Field Digital Mammography with Computer Added Detection was performed. COMPARISON: Comparison is made with prior study dated 02/07/2020 and 02/05/2019. FINDINGS: Breast Composition: The breasts are almost entirely fatty. There are no dominant masses or suspicious calcifications. Stable bilateral secretory calcifications. No other significant abnormalities are identified. There has been no significant change since the prior study. BI/SCRN MAMM (CAD)W/TODD BILAT IMPRESSION: Stable bilateral screening mammogram. Yearly follow-up mammogram recommended. (A) ASSESSMENT CATEGORY: BIRADS Category 2: Benign. A letter regarding these results will be sent to the patient by the facility within 30 days. Approximately 10% of breast cancers are not detected by mammography. A normal mammogram should not delay biopsy of a clinically suspicious abnormality. [id number] Electronically Signed: Jaspreet Gustafson MD at 13:11 EST , Service support ,
== END ==
PROVIDERS: PCP Family Medicine; Referring Provider Family Medicine; Visit Provider Family Medicine
DX: Z12.31 Encounter for screening mammogram for malignant neoplasm of breast (principal)
CPT/HCPCS: 77063; 77067

== ENCOUNTER → 2021-02-27 13:55 | Outpatient (CLI) | payer MEDICARE, OTHER, SELFPAY ==
--- NOTE | 2021-02-27 13:59 | BD_ITS ---
STUDY: DUAL ENERGY X-RAY ABSORPTIOMETRY / DXA REASON FOR EXAM: Female, 85 years old. Z78.0. The patient is postmenopausal. TECHNIQUE: Bone Mineral Density (BMD) measurements of lumbar spine and bilateral hips were obtained. COMPARISON: Comparison is made with prior study of 02/23/2019. FINDINGS: Lumbar Spine (L1-L4): g/cm2 (0.902) / T-score (-1.3) / Z-score (1.5) Findings are suggestive of osteopenia with a low fracture risk. Left Femur Total: g/cm2 (0.768) / T-score (-1.4) / Z-score (0.8) Left Femoral Neck: g/cm2 (0.660) / T-score (-1.7) / Z-score (0.8) Right Femur Total: g/cm2 (0.742) / T-score (-1.6) / Z-score (0.6) Right Femoral Neck: g/cm2 (0.612) / T-score (-2.1) / Z-score (0.3) The T-Scores on the most recent prior examination were: Lumbar Spine (L1-L4): There has been worsening of bone density since the previous examination. Left Femur Total: which represents a worsening of 0.1%. Right Femur Total: which represents an improvement of 0.9%. BD/Dexa Bone Density Study IMPRESSION: The patient is considered osteopenic as outlined below according to World Dick Organization (WHO) criteria with a moderate fracture risk. There has been worsening of bone density since the previous examination. Reference Information: The T-score is the number of standard deviations above or below the standard which is normal for young adults at their peak bone mineral density. The World Health Organization (WHO) interprets the T-scores as follows: Above -1 Normal bone density Between -1 and -2.5 Osteopenia Equal to / or below -2.5 Osteoporosis As a practical clinical guideline, osteopenia may be graded as follows: Mild -1 through -1.5 Moderate -1.6 through -2.0 Severe -2.1 through -2.4 The Z-score is the number of standard deviations above or below age-matched controls. A Z-score of less than -1.5 would be considered abnormal. References: 1. NIH Osteoporosis and Related Bone Diseases www osteo.org 2. International Society for Clinical Densitometry www iscd.org 3. National Osteoporosis Foundation www nof.org Electronically Signed: Jaspreet Gustafson MD at 14:42 EST , Service support ,
== END ==
PROVIDERS: PCP Family Medicine; Referring Provider Family Medicine; Visit Provider Family Medicine
DX: Z78.0 Asymptomatic menopausal state (principal)
CPT/HCPCS: 77080

== ENCOUNTER 2021-04-03 12:50 | Outpatient (CLI) | payer MEDICARE, OTHER, SELFPAY ==
--- NOTE | 2021-04-03 12:52 | ECHOD_ITS ---
Reason For Study: MURMUR, SYNCOPE Procedure This was a 2D Doppler, Color Flow transthoracic echocardiogram. The exam was of adequate technical quality. Exam performed in department. Left Ventricle Normal LV size. Sigmoid septum. Left ventricular systolic function is normal. The estimated ejection fraction is 75 %. Diastolic function is indeterminate. No regional wall motion abnormalities noted. Right Ventricle Normal RV size. Normal systolic function. Atria Normal left atrium. Normal right atrium. No doppler evidence for ASD. Mitral Valve There is no mitral annular calcification. Normal mitral valve. Trivial mitral valve insufficiency. Tricuspid Valve Normal tricuspid valve. Mild to moderate (1-2+) tricuspid valve insufficiency. Right ventricular systolic pressure estimated to be 30 mmHg. Aortic Valve Trisinus/trileaflet aortic valve. Mild diffuse aortic valve thickening. Pulmonic Valve The pulmonic valve is not well visualized. Mild (1+) pulmonic valve insufficiency. Great Vessels Normal sized aortic root. Pericardium/Pleural No pericardial effusion. MMode/2D Measurements & Calculations LVIDd: 4.5 cm IVSd: 0.83 cm Ao root diam: 2.7 cm LVIDs: 2.9 cm LVPWd: 0.83 cm RVDd: 3.0 cm FS: 34.6 % LAV(MOD-bp): 41.1 ml LVAd ap4: 19.1 cm2 LVAd ap2: 23.3 cm2 LAV(MOD-bp) Indexed: 26.2 ml/m2 LVLd ap4: 6.7 cm LVLd ap2: 7.4 cm LAV(MOD-sp2): 33.8 ml EDV(MOD-sp4): 45.1 ml EDV(MOD-sp2): 61.1 ml LAV(MOD-sp4): 39.2 ml EDV(sp4-el): 45.9 ml EDV(sp2-el): 61.9 ml LVAs ap4: 11.2 cm2 LVAs ap2: 10.8 cm2 LVLs ap4: 5.4 cm LVLs ap2: 5.3 cm ESV(MOD-sp4): 21.5 ml ESV(MOD-sp2): 19.2 ml ESV(sp4-el): 19.6 ml ESV(sp2-el): 18.9 ml EF(MOD-sp4): 52.3 % EF(MOD-sp2): 68.6 % EF(sp4-el): 57.4 % SV(MOD-sp4): 23.6 ml SV(MOD-sp2): 41.9 ml SV(sp4-el): 26.3 ml LA dimension(2D): 3.2 cm LA A4 area: 13.3 cm2 RA A4 area: 9.1 cm2 Time Measurements MV dec time: 0.19 sec Doppler Measurements & Calculations MV E max qasim: 84.0 cm/sec Lat Peak E' Qasim: 5.3 cm/sec Med Peak E' Qasim: 8.7 cm/sec MV A max qasim: 98.8 cm/sec E/E' lat: 15.7 E/E' med: 9.6 MV E/A: 0.85 Ao V2 max: 131.9 cm/sec LV V1 max: 89.7 cm/sec PA V2 max: 102.5 cm/sec Ao max P.0 mmHg LV V1 max P.2 mmHg PI dec slope: 153.8 cm/sec2 TR max qasim: 259.3 cm/sec TR max P.9 mmHg ECHO/Echo Complete Interpretation Summary Left ventricular systolic function is normal. The estimated ejection fraction is 75 %. Sigmoid septum. Trivial mitral valve insufficiency. Mild to moderate (1-2+) tricuspid valve insufficiency. Mild diffuse aortic valve thickening. Mild (1+) pulmonic valve insufficiency. Right ventricular systolic pressure estimated to be 30 mmHg. Diastolic function is indeterminate. Ordering Physician: Fredrick Frank Referring Physician: Fredrick Frank Performed By: Tashia Bacon, JOAQUÍN, RVT
== END 2021-04-03 23:59 | disposition short-term general hospital (02) ==
LOC: CVS 12:51
PROVIDERS: PCP Family Medicine; Referring Provider Family Medicine; Visit Provider Family Medicine
DX: R55 Syncope and collapse (principal); R01.1 Cardiac murmur, unspecified
CPT/HCPCS: 93306

== ENCOUNTER 2021-04-11 12:45 | Outpatient (CLI) | payer MEDICARE, OTHER, SELFPAY | END 2021-04-11 23:59 | disposition short-term general hospital (02) | LOC: PSN 12:46 | PROVIDERS: PCP Family Medicine; Referring Provider Family Medicine; Visit Provider Family Medicine | DX: R55 Syncope and collapse (principal); R01.1 Cardiac murmur, unspecified | CPT/HCPCS: 93225; 93226 ==

== ENCOUNTER 2021-04-30 13:40 | Outpatient (CLI) | payer MEDICARE, OTHER, SELFPAY ==
--- NOTE | 2021-04-30 13:43 | CT_ITS ---
HISTORY: Syncope. TECHNIQUE: Multiple axial images were obtained of the brain without intravenous contrast. Routine [place]/brain and carotid CT angiogram protocol also performed with IV contrast. Nascet criteria using the distal ICAs for comparison were used for evaluation of stenoses. 2D/3D reconstructions were reviewed. A radiation dose optimization technique was used for this scan. IV Contrast dosage and agent: 100 mL Isovue 370. Number of images including paperwork: 347. COMPARISON: None. FINDINGS: BRAIN PARENCHYMA: Chronic small vessel ischemic gliosis. INTRACRANIAL HEMORRHAGE: No acute intracranial hemorrhage. CSF SPACES/MASS EFFECT: Mild generalized volume loss without significant midline shift or mass effect. ORBITS: Bilateral lens resections. CALVARIUM: Intact. PARANASAL SINUSES/MASTOID AIR CELLS: Chronic sphenoid sinusitis. CTA head- ICAs: No significant stenosis at the intracranial/visualized segments. ACAs: No significant stenosis at the visualized segments. MCAs: No significant stenosis at the visualized segments. nitroglycerin neutralizer: No significant stenosis at the visualized segments. BASILAR ARTERY: No significant stenosis. VERTEBRAL ARTERIES: No significant stenosis at the intradural/visualized segments. 2 mm left PICA origin aneurysm. CTA neck- RIGHT CCA/ICA: Mild calcified plaque at the common carotid bifurcation extending into the origin of the internal carotid artery. No occlusion or significant stenosis. LEFT CCA/ICA: Mild calcified plaque at the common carotid bifurcation extending into the origin of the internal carotid artery. No occlusion, significant stenosis or dissection. RIGHT VERTEBRAL ARTERY: No occlusion, significant stenosis or dissection. LEFT VERTEBRAL ARTERY: No occlusion, significant stenosis or dissection. Tortuous proximally. Minimal calcified plaque distally. AORTIC ARCH AND BRANCHES: Mild atherosclerosis. CT/CTA Head AND Neck W/ Contrast IMPRESSION: No acute intracranial process identified. Small left PICA aneurysm. No evidence for significant stenosis or occlusion in the [place] region. No evidence for significant stenosis in the carotid or vertebral arteries of the neck. Individualized dose optimization techniques were used for this CT. at 1510 Reported and signed by: Crys Magana MD Electronically Signed: Crys Magana MD at 15:09 EST Reading Location ID and State: [facility] / [place] Tel , Service support ,
[2021-04-30 14:21] LABS: CREATININE FINGERSTICK < 0.6 mg/dL (0.55-1.02); EGFR FINGERSTICK > 60.0000 mL/min (>60)
== END 2021-04-30 23:59 | disposition home or self-care (01) ==
LOC: CT 13:41
PROVIDERS: PCP Family Medicine; Referring Provider Family Medicine; Visit Provider Family Medicine
DX: R55 Syncope and collapse (principal); R42 Dizziness and giddiness; I65.29 Occlusion and stenosis of unspecified carotid artery
CPT/HCPCS: 70496; 70498; Q9967

== ENCOUNTER 2021-06-04 08:37 | Outpatient (CLI) | payer MEDICARE, OTHER, SELFPAY ==
--- NOTE | 2021-06-04 08:43 | RAD_ITS ---
INDICATION: DYSPHAGIA EXAMINATION/TECHNIQUE: Barium oral contrast and gas bubbles were administered to the patient. Total Fluoroscopic Time: 0.17 AND number of Fluoroscopic Images: 30 OR Radiation dosage index: COMPARISON: None. FINDINGS: Initial regulatory compliance director images demonstrate no radiopaque foreign bodies. Thin contrast was first swallow with no aspiration demonstrated. The remainder of the exam was completed using normal technique with administration of gas crystals and thick contrast. There is some fine nodular mucosal irregularity in the mid to distal esophagus which can be seen with chronic reflux esophagitis. Reflux was not elicited. No hiatal hernia. No masses or strictures are identified. Normal motility. RAD/Esophagus Single Contrast IMPRESSION: As above. Electronically Signed: Luca Bangura, at 10:35 EDT ,
== END 2021-06-04 23:59 | disposition home or self-care (01) ==
LOC: RAD 08:38
PROVIDERS: PCP Family Medicine; Referring Provider Otolaryngology; Visit Provider Otolaryngology
DX: R13.10 Dysphagia, unspecified (principal)
CPT/HCPCS: 74220

== ENCOUNTER → 2021-11-21 | Outpatient (CLI) | payer MEDICARE, OTHER, SELFPAY | END | disposition home or self-care (01) | PROVIDERS: PCP Family Medicine; Visit Provider Family Medicine | DX: U07.1 COVID-19 (principal) | CPT/HCPCS: 87635; U0003; U0005 ==

== ENCOUNTER → 2022-02-04 | Outpatient (CLI) | payer MEDICARE, OTHER, SELFPAY ==
[2022-02-04 12:31] LABS: Thyroid Stim Hormone (TSH) 4.15 uIU/mL (0.358-3.74)
== END | disposition home or self-care (01) ==
PROVIDERS: PCP Family Medicine; Visit Provider Internal Medicine Endocrinology, Diabetes & Metabolism
DX: E03.9 Hypothyroidism, unspecified (principal)
CPT/HCPCS: 36415; 84443

== ENCOUNTER → 2022-02-08 | Outpatient (CLI) | payer MEDICARE, OTHER, SELFPAY ==
--- NOTE | 2022-02-08 10:09 | BI_ITS ---
MAMMOGRAPHY - BILATERAL SCREENING REASON FOR EXAM: Female, 86 years old. Routine annual screening examination. PERTINENT HISTORY: Non-contributory. TECHNIQUE: Digital bilateral breast todd (3D mammographic acquisition) in the CC and MLO projections. 2-D mediolateral oblique (MLO) and craniocaudad (CC) views of both breasts were obtained. CAD: Full Field Digital Mammography with Computer Added Detection was performed. COMPARISON: Comparison is made with prior study dated 02/07/2021 and 02/07/2020. FINDINGS: Breast Composition: The breasts are almost entirely fatty. There are no dominant masses or suspicious calcifications. Stable bilateral secretory calcifications. Stable small benign-appearing bilateral axillary lymph nodes. No other significant abnormalities are identified. There has been no significant change since the prior study. BI/SCRN MAMM (CAD)W/TODD BILAT IMPRESSION: Stable bilateral screening mammogram. Yearly follow-up mammogram recommended. (A) ASSESSMENT CATEGORY: BIRADS Category 2: Benign. A letter regarding these results will be sent to the patient by the facility within 30 days. Approximately 10% of breast cancers are not detected by mammography. A normal mammogram should not delay biopsy of a clinically suspicious abnormality. [id number] Electronically Signed: Jaspreet Gustafson MD at 10:54 EST ,
== END | disposition home or self-care (01) ==
PROVIDERS: PCP Family Medicine; Visit Provider Family Medicine
DX: Z12.31 Encounter for screening mammogram for malignant neoplasm of breast (principal)
CPT/HCPCS: 77063; 77067

== ENCOUNTER → 2022-04-22 | Outpatient (CLI) | payer MEDICARE, OTHER, SELFPAY ==
[2022-04-22 15:37] LABS: Absolute Lymphocyte Count 0.88 X10^3/uL (0.83-4.51); Absolute Neutrophil Count 3.4 X10^3/uL (2.0-7.7); Basophil# 0.03 X10^3/uL; Basophil% 0.6 % (0-1); Eosinophil# 0.15 X10^3/uL; Eosinophils% 3.1 % (0-5); Hematocrit 44.6 % (37-47); Hemoglobin 13.9 g/dL (12.0-15.0); Lymphocyte # 0.88 X10^3/ul (0.83-4.51); Lymphocyte % 18.3 % (19-41); Mean Corp Hgb Conc 31.2 g/dL (32-36); Mean Corpuscular Hgb 29.9 pg (27.0-32.0); Mean Corpuscular Volume 95.9 fL (81-99); Mean Platelet Vol. 10.1 fl (6.2-12.0); Monocyte# 0.36 X10^3/uL; Monocyte% 7.5 % (0-10); NRBC Flagged by Analyzer 0 % (0-5); Neutrophil # 3.37 X10^3/uL (2.7-7.7); Neutrophil % 70.1 % (47-70); Platelet Count 271 K/mm3 (150-450); RBC Distribution Width CV 13.3 % (11.6-14.6); RBC Distribution Width SD 47.2 fl (35.1-43.9); Red Blood Count 4.65 M/mm3 (4.2-5.4); White Blood Count 4.8 K/mm3 (4.4-11.0)
[2022-04-22 16:06] LABS: ALB/GLOB Ratio 1.1 RATIO (0.9-2.4); AST(SGOT) 19 U/L (15-37); Alanine Aminotransfer ALT/SGPT 22 U/L (13-56); Albumin, Serum 3.6 g/dL (3.2-5.0); Alkaline Phosphatase 69 U/L (45-117); Anion Gap 9 (5-15); BUN 23 mg/dL (7-18); BUN/Creat Ratio 33.4 RATIO (10-20); Calcium,Total 9.4 mg/dL (8.5-10.1); Chloride 103 mmol/L (98-107); Cholesterol 192 mg/dL (200); Creatinine, Serum 0.69 mg/dL (0.55-1.02); EST Glomerular Filtration Rate 86 mL/min (>60); Est Glom Filt Rate - Afr Amer 104 mL/min (>60); Globulin 3.3 g/dL (2.2-4.2); Glucose 80 mg/dL (74-106); High Density Lipoprotein 83 mg/dL; Potassium 4.6 mmol/L (3.5-5.1); Protein, Total 6.9 g/dL (6.4-8.2); Sodium Level 141 mmol/L (136-145); Triglycerides 108 mg/dL; Very Low Density Lipoprotein 22 mg/dL (5-40)
== END | disposition home or self-care (01) ==
PROVIDERS: PCP Family Medicine; Visit Provider Family Medicine
DX: I10 Essential (primary) hypertension (principal); E78.00 Pure hypercholesterolemia, unspecified; E55.9 Vitamin D deficiency, unspecified; Z51.81 Encounter for therapeutic drug level monitoring
CPT/HCPCS: 36415; 80053; 80061; 82306; 85025

== ENCOUNTER → 2022-06-26 | Outpatient (CLI) | payer MEDICARE, OTHER, SELFPAY ==
[2022-06-26 16:03] LABS: Thyroid Stim Hormone (TSH) 1.91 uIU/mL (0.358-3.74)
== END | disposition home or self-care (01) ==
PROVIDERS: PCP Family Medicine; Visit Provider Internal Medicine Endocrinology, Diabetes & Metabolism
DX: E03.9 Hypothyroidism, unspecified (principal)
CPT/HCPCS: 36415; 84443

== ENCOUNTER → 2022-09-30 | Outpatient (CLI) | payer MEDICARE, OTHER, SELFPAY ==
[2022-09-30 12:46] LABS: T4 Free Direct 1.07 ng/dL (0.76-1.46); Thyroid Stim Hormone (TSH) 2.41 uIU/mL (0.358-3.74)
== END | disposition home or self-care (01) ==
PROVIDERS: PCP Family Medicine; Referring Provider Family Medicine; Visit Provider Internal Medicine Endocrinology, Diabetes & Metabolism
DX: E03.9 Hypothyroidism, unspecified (principal)
CPT/HCPCS: 36415; 84439; 84443

== ENCOUNTER → 2022-12-25 | Outpatient (CLI) | payer MEDICARE, OTHER, SELFPAY ==
[2022-12-25 15:08] LABS: Absolute Lymphocyte Count 1.16 X10^3/uL (0.83-4.51); Absolute Neutrophil Count 2.3 X10^3/uL (2.0-7.7); Basophil# 0.05 X10^3/uL; Basophil% 1.3 % (0-1); Color, Urine Yellow (Yellow); Eosinophil# 0.09 X10^3/uL; Eosinophils% 2.3 % (0-5); Glucose, Dipstick Normal (Normal); Hematocrit 43.8 % (37-47); Hemoglobin 13.6 g/dL (12.0-15.0); Ketone-Dipstick Negative (Negative); Leukocyte Esterase-Dipstick Negative /ul (Negative); Lymphocyte # 1.16 X10^3/ul (0.83-4.51); Lymphocyte % 29.7 % (19-41); Mean Corp Hgb Conc 31.1 g/dL (32-36); Mean Corpuscular Volume 96.7 fL (81-99); Mean Platelet Vol. 9.6 fl (6.2-12.0); Monocyte# 0.28 X10^3/uL; Monocyte% 7.2 % (0-10); NRBC Flagged by Analyzer 0 % (0-5); Neutrophil # 2.32 X10^3/uL (2.7-7.7); Neutrophil % 59.5 % (47-70); Nitrite-Dipstick Negative (Negative); Occult Blood-Urine Negative /ul (Negative); Platelet Count 235 K/mm3 (150-450); Protein-Dipstick Negative (Negative); RBC Distribution Width CV 13.2 % (11.6-14.6); RBC Distribution Width SD 46.9 fl (35.1-43.9); Red Blood Count 4.53 M/mm3 (4.2-5.4); Urine Bilirubin Dipstick Negative (Negative); Urine Clarity Clear (Clear); Urine Urobilinogen Normal (Normal); White Blood Count 3.9 K/mm3 (4.4-11.0)
[2022-12-25 15:45] LABS: Vitamin B12 824 pg/mL (211-911)
[2022-12-25 16:05] LABS: AST(SGOT) 21 U/L (15-37); Alanine Aminotransfer ALT/SGPT 25 U/L (13-56); Albumin, Serum 3.4 g/dL (3.2-5.0); Alkaline Phosphatase 65 U/L (45-117); Anion Gap 6 (5-15); BUN 17 mg/dL (7-18); BUN/Creat Ratio 24.5 RATIO (10-20); Calcium,Total 8.9 mg/dL (8.5-10.1); Chloride 109 mmol/L (98-107); Creatinine, Serum 0.69 mg/dL (0.55-1.02); EST Glomerular Filtration Rate 85 mL/min (>60); Est Glom Filt Rate - Afr Amer 103 mL/min (>60); Globulin 3.4 g/dL (2.2-4.2); Glucose 115 mg/dL (74-106); Potassium 3.9 mmol/L (3.5-5.1); Protein, Total 6.8 g/dL (6.4-8.2); Sodium Level 142 mmol/L (136-145); Thyroid Stim Hormone (TSH) 4.64 uIU/mL (0.358-3.74)
== END | disposition home or self-care (01) ==
LOC: BFHLAB 11:23
PROVIDERS: PCP Family Medicine; Referring Provider Internal Medicine Endocrinology, Diabetes & Metabolism; Visit Provider Family Medicine
DX: R53.83 Other fatigue (principal); R35.0 Frequency of micturition
CPT/HCPCS: 36415; 80053; 81002; 82607; 84439; 84443; 85025

== ENCOUNTER → 2022-12-26 | Outpatient (CLI) | payer MEDICARE, OTHER, SELFPAY ==
--- NOTE | 2022-12-26 13:35 | CDU_ITS ---
Reason For Study: Carotid stenosis Rt. Velocities/BP Lt. Velocities/BP Prox CCA 81.5/10.7 cm/sec. Prox CCA 85/13.5 cm/sec. Mid CCA 87.2/15.4 cm/sec. Mid CCA 83.9/16.8 cm/sec. Dist CCA 75.9/13.5 cm/sec. Dist CCA 68.5/13.5 cm/sec. Prox ICA 72.8/18.8 cm/sec. Prox ICA 63/19 cm/sec. Mid ICA 128.4/33.4 cm/sec. Mid ICA 99.4/21.9 cm/sec. Dist ICA 104.9/21.8 cm/sec. Dist ICA 106.5/20.6 cm/sec. Rt. ICA/CCA = 1.58. Lt. ICA/CCA = 1.27. Prox ECA 112.1/4.1 cm/sec. Prox ECA 98.1/6.9 cm/sec. Rt. Vert. 57/12.6 cm/sec. Lt. Vert. 50.9/14.6 cm/sec. Right Extracranial There is intimal thickening but no significant atherosclerotic plaque noted in the right common carotid artery. There is heterogeneous, irregular atherosclerotic plaque noted in the right internal carotid artery. The right internal carotid artery is very tortuous. There is heterogeneous, irregular atherosclerotic plaque noted in the right external carotid artery. Antegrade flow is noted in the right vertebral artery. Left Extracranial There is homogeneous, smooth atherosclerotic plaque noted in the left common carotid artery. There is heterogeneous, irregular atherosclerotic plaque noted in the left internal carotid artery. The left internal carotid artery is very tortuous. There is intimal thickening but no significant atherosclerotic plaque noted in the left external carotid artery. Antegrade flow is noted in the left vertebral artery. Procedure Carotid Duplex 36808. This is a Carotid Duplex examination using B-mode, color flow and specral Doppler. Exam performed in department. VL/Carotid Duplex Ultrasound Interpretation Summary Moderate (50-69%) stenosis right extracranial internal carotid. Mild (<50%) stenosis left extracranial internal carotid. Patent and antegrade vertebrals bilaterally. Ordering Physician: Fredrick Frank Referring Physician: Fredrick Frank Performed By: Apple Harley RVT
== END | disposition home or self-care (01) ==
LOC: CVS 13:31
PROVIDERS: PCP Family Medicine; Visit Provider Family Medicine
DX: I65.22 Occlusion and stenosis of left carotid artery (principal)
CPT/HCPCS: 93880

== ENCOUNTER 2023-01-05 08:53 | Emergency (ER) | payer MEDICARE, OTHER, SELFPAY ==
[2023-01-05 08:56] VITALS: BP 181/158; PULSE 88; RESP 12; TEMP 36.3; O2SAT 97; BMI 24.7
--- NOTE | 2023-01-05 09:05 | VDLE_ITS ---
Reason For Study: swelling RIGHT GSV is normal. CFV is compressible, spontaneous, phasic, competent and demonstrates normal augmentation. FV is compressible, spontaneous, phasic, competent and demonstrates normal augmentation. POP V is compressible, spontaneous, phasic, competent and demonstrates normal augmentation. T/P Trunk is compressible. PTV is compressible. RT PerV is compressible. Procedure This is a venous duplex using B-mode, color flow and spectral Doppler. Exam performed portable in ED. The exam was abbreviated due to the COVID 19 protocol. The exam was diagnostic. A preliminary report was called and/or faxed to Dr. Hicks. VL/Venous Duplex US, Unilateral Interpretation Summary Deep veins of the right lower extremity are patent and compressible segmentally . There is no evidence of right lower extremity deep vein thrombosis. The right great saphen[place] us vein appears patent and compressible segmentally. Ordering Physician: Kalpana Hicks Performed By: Israel Fernando RVT
--- NOTE | 2023-01-05 09:06 | EX.ED.DYSGE1 ---
HPI History of Present Illness Chief Complaint: Cellulitis Detail of Chief Complaint: Redness and swelling right leg Informant: patient Narrative Narrative: Patient presents with redness and swelling to the right leg that she initially noticed yesterday. Patient was unsure if she had had a bug bite or if her kitten had bitten her skin. Patient went to urgent care and they were concerned about a DVT potentially. They sent her in to be evaluated by ultrasound to rule out DVT. Patient [place] any chest pain or shortness of breath. No history of DVT or PE. She denies recent travel or surgery. She denies fevers or chills or sweats. [facility] Medical History (Updated 01/05/23 @ 10:[address] Kalpana Hicks, DO) Thyroid disease TIA (transient ischemic attack) Home Medications calcium carbonate 600 mg-vitamin D3 20 mcg (800 unit) tablet (Caltrate with Vitamin D3) 1 tab PO DAILY@0800 01/08/13 [History Last Taken Unknown] chlordiazepoxide HCl 10 mg capsule 10 mg PO TID PRN PRN Anxiety 01/08/13 [History Last Taken Unknown] multivitamin with folic acid 400 mcg tablet (Thera) 1 tab PO DAILY 01/08/13 [History Last Taken Unknown] omega-3 fatty acids-fish oil 340 mg-1,000 mg capsule 1 ea PO 01/08/13 [History Last Taken Unknown] pravastatin 20 mg tablet 20 mg PO DAILY 01/08/13 [History Last Taken Unknown] Ranitidine [Zantac] 150 mg PO BID 04/29/13 [History Last Taken Unknown] cephalexin 500 mg capsule 500 mg PO Q6 #40 CAPSULES 01/05/23 [Rx Last Taken Unknown] Allergy/AdvReac Type Severity Reaction Status Date / Time omeprazole Allergy Abd Verified 01/05/23 08:56 cramps/diarrhea pantoprazole Allergy Abd Verified 01/05/23 08:56 cramps/diarrhea Sulfa (Sulfonamide Allergy Hives Verified 01/05/23 08:56 Antibiotics) phenazopyridine HCl AdvReac Vomiting Verified 01/05/23 08:56 [From Pyridium] RSV Vaccine AdvReac Made me Uncoded 01/05/23 08:35 horribly ill Surgical History Hx of appendectomy Social History Smoking Status: Former smoker ROS ROS ED Review of Systems ROS Unobtainable: other Constitutional Constitutional ED: Reports lethargy; Denies chills, fever(s), sweats or weight loss Eyes Eyes: Denies blurry vision, change in vision or diplopia ENT ENT ED: Denies rhinorrhea or sore throat Cardiovascular Cardiovascular: Denies chest pain, orthopnea or racing heartbeat Respiratory/Chest Respiratory/Chest: Denies cough, dyspnea, dyspnea on exertion, orthopnea or sputum Gastrointestinal Gastrointestinal: Denies abdominal pain, diarrhea, nausea or vomiting Genitourinary Genitourinary ED: Denies dysuria, hematuria or urinary frequency Musculoskeletal Musculoskeletal: Denies arthralgias, back pain, myalgias or neck pain Integumentary Reports other Details: Redness and swelling to right leg ; Denies abscess, Abrasions or rash Neurologic Neurologic: Denies headache(s) or weakness Psychiatric Psychiatric: Denies anxiety, depression or suicidal thoughts Endocrine Endocrinology: Denies polydipsia, polyphagia or polyuria Hematologic/Lymphatic Hematologic/Lymphatic: Denies easy bleeding, easy bruising or lymphadenopathy Allergic/Immunologic Allergic/Immunologic ED: Denies mouth swelling, tongue swelling or urticaria EXAM Physical Exam Const Vital Signs: 01/05/23 08:56 Temperature 97.4 F L Temperature Source Temporal Pulse Rate 88 Respiratory Rate 12 Blood Pressure 181/158 H Blood Pressure Mean 165 Pulse Ox 97 Oxygen Delivery Method Room Air Positive well nourished and well developed General Appearance ED: well developed and NAD HEENT Reports TM's clear and moist mucous membranes normocephalic and atraumatic; Negative for trauma or tenderness Tympanic Membrane ED: Yes TM's clear Eyes PERRL and EOMs intact bilaterally General Eye ED: Negative for pale conjunctiva or scleral icterus Neck no lymphadenopathy, supple and no JVD General: Negative for tenderness Chest Wall inspection of chest normal and palpation of chest normal Chest: Negative for tenderness Resp normal respiratory effort and clear to auscultation bilaterally Effort and Inspection: Negative for respiratory distress or pain with movement Auscultation: Negative for rhonchi, wheezes or diminished lung sounds Cardio regular rate, regular rhythm, S1 normal heart sound, S2 normal heart sound and no murmurs Peripheral Pulses: pulses 2+ throughout GI normal to inspection, nondistended, normoactive bowel sounds, soft to palpation, non-tender, non-distended and no masses Back/Spine no CVA tenderness and no thoracic nor lumbar tenderness Extremity Extremity Narrative: Right lower extremity-patient does have some edema from just below the knee down to the ankle. There is some faint erythema noted. There is a small area of broken skin over the medial aspect of the left calf. No abscess. Neurovascularly intact. General Extremety ED: Negative for edema General Extremity: Negative for edema Neuro oriented x3, CN's II-XII intact bilaterally, no sensory deficits noted and gait normal Sensorium / Orientation: awake, alert, oriented to person, oriented to place and oriented to time Motor Exam: strength 5/5 throughout and strength abnormal Psych mental status grossly normal Skin no rashes or lesions noted and no wounds MDM MDM MDM Narrative Medical decision making narrative: Patient presents with redness and swelling to the right lower extremity since yesterday. There was concern for possibility of DVT. We will obtain a venous Doppler. Venous Doppler was negative for DVT. At this point expect likely this is more of a cellulitic etiology for her redness and swelling to her right lower extremity. Does have 1 small area of broken skin that I suspect is likely the nidus of infection. Patient will be started on Keflex. She has no systemic symptoms otherwise I do not feel she needs any lab work-up or IV antibiotics. I did outline the area of erythema with marker. Advised her to return if fever, chills, sweats, increased redness or swelling, or condition worsening way. Patient to follow-up with her primary care physician within next 3 to 5 days for a wound check patient initially was noted to have quite elevated blood pressure however on repeat blood pressure she was 150s over 80s. Patient normally not on blood pressure medicine. Discharge Plan Triage Chief Complaint: Cellulitis ED Provider: Kalpana Hicks Dx/Rx/DC Orders Clinical Impression: Cellulitis Instructions: ED Cellulitis Prescriptions: New cephalexin [cephalexin] 500 mg capsule 500 mg PO Q6 Qty: 40 0RF No Action chlordiazepoxide HCl 10 MG capsule 10 mg PO TID PRN PRN (Reason: Anxiety) pravastatin 20 MG tablet 20 mg PO DAILY omega-3 fatty acids-fish oil 1 EACH capsule 1 ea PO multivitamin with folic acid [Thera] 1 TABLET tablet 1 tab PO DAILY calcium carbonate-vitamin D3 [Caltrate with Vitamin D3] 1 TAB tablet 1 tab PO DAILY@0800 Ranitidine [Zantac] 150 MG tablet 150 mg PO BID Primary Care Provider: Fredrick Frank Referrals: Fredrick Frank DO [Primary Care Provider] - 3-5 Days Disposition Disposition: Home, Self Care Discharge Date/Time: 01/05/23 11:14
[2023-01-05] MEDS: Cephalexin 250 MG Capsule 500 MG PO (11:10)
== END 2023-01-05 11:14 | disposition home or self-care (01) ==
PROVIDERS: Emergency Provider Emergency Medicine; PCP Family Medicine; Visit Provider Emergency Medicine
DX: L03.115 Cellulitis of right lower limb (principal); Z87.891 Personal history of nicotine dependence; Z86.73 Personal history of transient ischemic attack (TIA), and cerebral infarction without residual deficits
CPT/HCPCS: 93971; 99282

== ENCOUNTER → 2023-01-09 | Outpatient (CLI) | payer MEDICARE, OTHER, SELFPAY ==
--- NOTE | 2023-01-09 13:27 | RAD_ITS ---
STUDY: X-RAY - LEFT ELBOW REASON FOR EXAM: Female, 87 years old. PAIN TECHNIQUE: 3 view(s) of the elbow. COMPARISON: None. FINDINGS: Normal visualized humerus, radius and ulna. Normal radiocapitellar and ulnotrochlear articulations. On lateral projection, there appears to be a tiny radiopaque density within the joint possibly representing a joint mouse possibly due to old trauma although may be artifactual. CT or MRI would be useful for further evaluation if indicated. RAD/Elbow min 3 Views IMPRESSION: No evidence for acute fracture or other significant bone pathology.. Cannot definitively exclude tiny joint mouse possibly due to old trauma. CT or MRI would be useful for more definitive evaluation Electronically Signed: Dagoberto Niño MD at 18:24 EDT ,
--- NOTE | 2023-01-09 13:30 | RAD_ITS ---
STUDY: X-RAY - LEFT SHOULDER REASON FOR EXAM: Female, 87 years old. PAIN TECHNIQUE: 4 view(s) of the shoulder. COMPARISON: None. FINDINGS: Narrowed glenohumeral articulation. Normal acromioclavicular joint. Normal acromion. Normal humeral head and visualized proximal humerus. The soft tissue structures are unremarkable. Normal visualized pulmonary apex. RAD/Shoulder min 2 Views IMPRESSION: Degenerative changes. No acute fracture or other significant bony pathology Electronically Signed: Dagoberto Niño MD at 18:25 EDT ,
== END | disposition home or self-care (01) ==
LOC: RAD 13:25
PROVIDERS: PCP Family Medicine; Referring Provider Family Medicine; Visit Provider Family Medicine
DX: M25.512 Pain in left shoulder (principal); M25.522 Pain in left elbow
CPT/HCPCS: 73030; 73080

== ENCOUNTER → 2023-03-04 | Outpatient (CLI) | payer MEDICARE, OTHER, SELFPAY ==
--- NOTE | 2023-03-04 13:55 | BI_ITS ---
MAMMOGRAPHY - BILATERAL SCREENING REASON FOR EXAM: Female, 87 years old. Routine annual screening examination. PERTINENT HISTORY: Non-contributory. TECHNIQUE: Digital bilateral breast todd (3D mammographic acquisition) in the CC and MLO projections. 2-D mediolateral oblique (MLO) and craniocaudad (CC) views of both breasts were obtained. CAD: Full Field Digital Mammography with Computer Added Detection was performed. COMPARISON: Comparison is made with prior study February 08, 2022 and February 07, 2021. FINDINGS: Breast Composition: The breasts are almost entirely fatty. There are no dominant masses or suspicious calcifications. Stable bilateral secretory calcification. No other significant abnormalities are identified. There has been no significant change since the prior study. BI/SCRN MAMM (CAD)W/TODD BILAT IMPRESSION: Stable bilateral screening mammogram. Yearly follow-up mammogram recommended. (A) ASSESSMENT CATEGORY: BIRADS Category 2: Benign. A letter regarding these results will be sent to the patient by the facility within 30 days. Approximately 10% of breast cancers are not detected by mammography. A normal mammogram should not delay biopsy of a clinically suspicious abnormality. [id number] Electronically Signed: Jaspreet Gustafson MD at 15:13 EST ,
--- NOTE | 2023-03-04 14:00 | BD_ITS ---
STUDY: DUAL ENERGY X-RAY ABSORPTIOMETRY / DXA REASON FOR EXAM: Female, 87 years old. 733.00OsteoporosisBONE DENSITY REASON FOR EXAM TECHNIQUE: Bone Mineral Density (BMD) measurements of lumbar spine and bilateral hips were obtained. COMPARISON: Comparison is made with prior study dated February 27, 2021 and February 23, 2019. FINDINGS: Lumbar Spine (L1-L4): g/cm2 (0.939) / T-score (-1.3) / Z-score (1.7) Findings are suggestive of osteopenia with a low fracture risk. Left Femur Total: g/cm2 (0.800) / T-score (-1.2) / Z-score (1.2) Left Femoral Neck: g/cm2 (0.676) / T-score (-1.6) / Z-score (1.0) Right Femur Total: g/cm2 (0.743) / T-score (-1.6) / Z-score (0.7) Right Femoral Neck: g/cm2 (0.642) / T-score (-1.9) / Z-score (0.7) The T-Scores on the most recent prior examination were: Lumbar Spine (L1-L4): There has been worsening of bone density since the previous examination. Left Femur Total: which represents an improvement of 4.2%. Right Femur Total: which represents an improvement of 0.1%. BD/Dexa Bone Density Study IMPRESSION: The patient is considered osteopenic as outlined below according to World Dick Organization (WHO) criteria with a moderate fracture risk. There has been improvement of bone density since the previous examination. Reference Information: The T-score is the number of standard deviations above or below the standard which is normal for young adults at their peak bone mineral density. The World Health Organization (WHO) interprets the T-scores as follows: Above -1 Normal bone density Between -1 and -2.5 Osteopenia Equal to / or below -2.5 Osteoporosis As a practical clinical guideline, osteopenia may be graded as follows: Mild -1 through -1.5 Moderate -1.6 through -2.0 Severe -2.1 through -2.4 The Z-score is the number of standard deviations above or below age-matched controls. A Z-score of less than -1.5 would be considered abnormal. References: 1. NIH Osteoporosis and Related Bone Diseases www osteo.org 2. International Society for Clinical Densitometry www iscd.org 3. National Osteoporosis Foundation www nof.org Electronically Signed: Jaspreet Gustafson MD at 13:16 EST ,
== END | disposition home or self-care (01) ==
LOC: OPBD 13:54
PROVIDERS: PCP Family Medicine; Referring Provider Family Medicine; Visit Provider Family Medicine
DX: Z12.31 Encounter for screening mammogram for malignant neoplasm of breast (principal); M81.0 Age-related osteoporosis without current pathological fracture
CPT/HCPCS: 77063; 77067; 77080

== ENCOUNTER → 2023-05-05 | Outpatient (CLI) | payer MEDICARE, OTHER, SELFPAY ==
--- OUTSIDE RECORDS SUMMARY | 2023-05-05 12:00 | XMS RPT_ITS | CCD ---
Author Name Unknown Address [address] [place] [address] [facility] Care Team Providers Care E Commerce Web Developer Name Role Phone Lele Tai Unavailable Andressa Solis LPN Unavailable Unavailable DIAS, NIKUNJ RUIZ Unavailable Unavailable DIAS, NIKUNJ RUIZ Unavailable Unavailable HORATTAS, LIZ PARKER Unavailable Unava ilable DIAS, NIKUNJ RUIZ Unavailable Unavailable HORATTAS, LIZ PARKER Unavailable Unava ilable HORATTAS, LIZ PARKER Unavailable Unava ilable HORATTAS, LIZ PARKER Unavailable Unava ilable HORATTAS, LIZ PARKER Unavailable Unava ilable HORATTAS, LIZ PARKER Unavailable Unava ilable DIAS, NIKUNJ RUIZ Unavailable Unavailable HORATTAS, LIZ PAREKR Unavailable Unava ilable DIAS, NIKUNJ Mendoza Unavailable Unavailable [facility] Unavailable Unavailable HORATTAS, LIZ C Unavailable Unavailable DIAS, NIKUNJ S Unavailable Unavailable HORATTAS, LIZ C Unavailable Unavailable DIAS, NIKUNJ S Unavailable Unavailable HORATTAS, LIZ C Unavailable Unavailable [facility] Unavailable Unavailable HORATTAS, LIZ C Unavailable Unavailable HORATTAS, LIZ C Unavailable Unavailable HORATTAS, LIZ C Unavailable Unavailable HORATTAS, LIZ C Unavailable Unavailable DIAS, NIKUNJ S Unavailable Unavailable HORATTAS, LIZ C Unavailable Unavailable Liz Frank DO Primary Care Provider Nikunj Dias MD Unavailable Jeovanny DOWNEY, Liz Parker Unavailable 1( [phone] Liz Frank DO Primary Care Provider Nikunj Dias MD Unavailable Liz Up MD Unavailable Allergies Allergy Classification Reported Allergen(s) Allergy Type Date of Onset Reaction(s) Facility (6 sources) omeprazole; Translations: [OMEPRAZOLE] drug allergy 3 Hives [facility] Work Phone: (6 sources) sucralfate; Translations: [SUCRALFATE] drug allergy 3 Hives [facility] Work Phone: (2 sources) Sulfonamides (Antibiotic) drug allergy 3 vomiting [facility] Work Phone: (4 sources) pantoprazole; Translations: [PANTOPRAZOLE] Drug Allergy 7 Other: See Comments [facility] Repository (4 sources) Sulfonamides (Antibiotic); Translations: [SULFA (SULFONAMIDE ANTIBIOTICS)] Propensity to adverse reactions to drug (disorder) 4 Intolerance, Vomiting [facility]ository Medications Completed/Discontinued Medications Medication Drug Class(es) Dates Sig (Normalized) Sig (Original) aspirin 325 mg oral tablet (4 sources) Nonsteroidal Anti-inflammatory Drug End: 01-25-2013 ASPIRIN 325 MG TABS 2-4 tabs a day as needed ASPIRIN [id number] Karen Oliva biotin 5 mg oral tablet (2 sources) take 1 tablet by mouth once daily biotin 5 mg tab Take 5 mg by mouth once daily. 0 Active Problems Active Problems Problem Classification Problem Date Documented Da te Episodic/Chronic Cataract (4 sources) Bilateral pseudophakia; Translations: [Presence of intraocular lens] Onset: 08-14-2015 08-14-2015 Chronic Gastroduodenal ulcer (2 sources) Peptic ulcer; Translations: [Peptic ulcer, site unspecified, unspecified as acute or chronic, without hemorrhage or perforation] Onset: 01-25-2013 01-25-2013 Chronic Malaise and fatigue (3 sources) Other fatigue; Translations: [Fatigue] Onset: 12-24-2016 12-24-2016 Episodic Other eye disorders (2 sources) Bilateral posterior vitreous detachment; Translations: [Vitreous degeneration, bilateral] Onset: 12-22-2014 09-01-2019 Chronic Other eye disorders (2 sources) Bilateral vitreous floaters; Translations: [Other vitreous opacities, bilateral] Onset: 08-14-2015 08-14-2015 Chronic Other nutritional; endocrine; and metabolic disorders (1 source) Hypercalcemia; Translations: [Hypercalcemia] Onset: 02-26-2017 Chronic Other skin disorders (4 sources) Lichen sclerosus et atrophicus; Translations: [Circumscribed scleroderma] Onset: 10-02-2017 Chronic Retinal detachments; defects; vascular occlusion; and retinopathy (2 sources) Retinal lattice degeneration; Translations: [Lattice degeneration of retina, unspecified eye] Onset: 12-07-2013 12-07-2013 Chronic Thyroid disorders (5 sources) Non-toxic multinodular goiter; Translations: [Nontoxic goiter, unspecified] Onset: 12-24-2016 01-06-2013 Chronic Unclassified (1 source) Unknown / UNK(Unknown) Onset: 03-06-2017 Past or Other Problems Problem Classification Problem Date Documented Da te Episodic/Chronic Abdominal pain (2 sources) Epigastric pain; Translations: [Epigastric pain] Onset: 01-04-2013 01-05-2013 Episodic Other aftercare (1 source) Encounter for other specified surgical aftercare; Translations: [Encounter for other specified surgical aftercare] Onset: 03-20-2017 Episodic Other connective tissue disease (2 sources) Hand pain; Translations: [Pain in right hand] Onset: 11-14-2016 11-14-2016 Episodic Other eye disorders (2 sources) Tear film insufficiency; Translations: [Dry eye syndrome of bilateral lacrimal glands] Onset: 08-14-2015 12-19-2018 Episodic Other non-traumatic joint disorders (2 sources) Pain in wrist; Translations: [Pain in right wrist] Onset: 11-14-2016 11-14-2016 Episodic Retinal detachments; defects; vascular occlusion; and retinopathy (2 sources) Horseshoe tear of retina of left eye without detachment; Translations: [Horseshoe tear of retina without detachment, left eye] Onset: 12-07-2013 12-19-2018 Episodic Superficial injury; contusion (4 sources) Contusion of right wrist, initial encounter; Translations: [Contusion of right hand, initial encounter] Onset: 11-14-2016 11-14-2016 Episodic Thyroid disorders (2 sources) Disorder of thyroid, unspecified; Translations: [Disorder of thyroid, unspecified] Onset: 03-05-2017 Episodic Results Test Name Value Interpretation Reference Range Facil ity Vital Signs Date Time Vital Sign Value Performing Clinician Faci lity 11-14-2016 12:48-0400 BMI (Body Mass Index) 26.43 kg/m2 Andressa Solis LPN [facility] Work Phone: 11-14-2016 12:48-0400 Body Temperature 98.7 [degF] Andressa Solis LPN [facility] Work Phone: 11-14-2016 12:48-0400 BP Diastolic 62 mm[Hg] Andressa Solis LPN [facility] Work Phone: 11-14-2016 12:48-0400 BP Systolic 122 mm[Hg] Andressa Solis LPN [facility] Work Phone: 11-14-2016 12:48-0400 Height 160.02 cm Andressa Solis LPN [facility] Work Phone: 11-14-2016 12:48-0400 Pulse (Heart Rate) 92 /min Andressa Solis LPN [facility] Work Phone: 11-14-2016 12:48-0400 Respiratory Rate 14 /min Andressa Solis LPN [facility] Work Phone: 11-14-2016 12:48-0400 Weight 67.68 kg Andressa Solis LPN [facility] Work Phone: 04-26-2013 13:15-0500 BSA (Body Surface Area) 1.75 m2 [facility] Work Phone: Encounters Encounter Date Encounter Type Care Provider Facility Start: 03-03-2023 Refill Deidre Paul APRN.CNP Work Phone: OB/Gynecology Plan of Treatment Date Care Activity Detail Author Start: 11-22-2022 Covid-19 Vaccine () Covid-19 Vaccine () [facility] Start: 11-22-2022 Influenza vaccination Influenza Vaccine (#1) [facility] Start: 03-24-2022 Advance Directive Discussion Advance Directive Discussion [facility] Start: 03-24-2022 Depression Assessment Depression Assessment [facility] Start: 11-22-2021 Influenza vaccination INFLUENZA (#1) [facility] Start: 03-24-2021 ADVANCE DIRECTIVE DISCUSSION ADVANCE DIRECTIVE DISCUSSION [facility] Start: 10-08-2020 COVID-19 VACCINE (3 - Booster for Moderna series) COVID-19 VACCINE (3 - Booster for Moderna series) [facility] Start: 11-14-2016 End: 11-14-2016 Appointment Appointment [facility] Work Phone: Start: 11-14-2016 End: 11-14-2016 X-ray exam of hand X-Ray, Hand [facility] Work Phone: Start: 11-14-2016 End: 11-14-2016 X-ray exam of wrist X-Ray, Wrist [facility] Now [facility] Work Phone: Start: 2002 BONE DENSITY BONE DENSITY [facility] Start: 2002 Bone Density Screening Bone Density Screening [facility] Start: 2002 Pneumococcal Vaccine: 65+ (1 - PCV) Pneumococcal Vaccine: 65+ (1 - PCV) [facility] Start: 2002 PNEUMOCOCCAL: 65+ (1 - PCV) PNEUMOCOCCAL: 65+ (1 - PCV) [facility] Start: 1997 RSV Vaccine (1 - 1-dose 60+ series) RSV Vaccine (1 - 1-dose 60+ series) [facility] Start: 08-28-1987 SHINGRIX VACCINE (1 of 2) SHINGRIX VACCINE (1 of 2) [facility] Start: 1982 DIABETES SCREEN DIABETES SCREEN [facility] Start: 1982 Diabetes Screening Diabetes Screening [facility] Start: 1956 Urine microalbumin profile [facility] Immunizations Immunization Date Immunization Notes Care Provider Fa cility 12-21-2019 influenza virus vacc ine, unspecified formulation Deidre Paul APRN.[employer] Work Phone: [facility] Payers Date Payer Category Payer Unknown FOR LIFE [id number] 2013-Present [phone] [address] [place] [address] Indemnity [id number] 2013 Unknown FOR LIFE [id number] 2013-Present [phone] [address] [place] [address] Indemnity [id number] 2002 Medicare MEDICARE MEDICAR E A AND B [id number] 2002-Present [phone] [address] [address] [place] [address] Medicare [id number] 2002 Medicare MEDICARE MEDICAR E A AND B [id number] 2002-Present [phone] [address] [address] [place] [address] Medicare [id number] Medicare [id number] Social History Date Type Detail Facility Start: 12-02-[address] [facility] Start: 12-02-2013 Tobacco use and exposure Smokeless t obacco non-user [facility] Start: 05-31-2020 Alcohol intake Current drinke r of alcohol (finding) [facility] Start: 02-24-2017 History SDOH Alcohol Comment occasional [facility] Start: 1935 Sex Assigned At Not on file [facility] Start: 02-28-2020 End: 05-31-2020 History of Social function [facility] Start: 02-28-2020 End: 05-31-2020 Tobacco use panel [facility] National Score (1-10 0), lower number is lower risk Not on file [facility] Clinical Notes 03-05-2017 to 03-03-2023 Telephone Encounter - Sneha Olsen RN - 03/03/2023 1:53 PM ESTTelephone Encounter - Denice Donnelly RN - 03/03/2023 9:12 AM ESTTelephone Encounter - Sherry Guerrero RN - 10/18/2021 4:20 PM EDT Note Date & Type Note Facility 03-03-2023 Miscellaneous Notes Patient notified and voiced understanding. The following approved medications have been transmitted electronically. Requested Prescriptions Signed Prescriptions Disp Refills clobetasol (TEMOVATE) 0.05 % ointment 30 g 3 Sig: USE 1 TO 2 TIMES A WEEK TO AFFECTED AREA Authorizing Provider: DEIDRE PAUL Pharmacy Information Pharmacy Address Telephone [facility] [id number] Sneha Olsen RN Patient sees AG for vulvar lesion that she applies clobetasol cream to. Last seen in office 05/31/2020 and will be out of her cream before Hilda returns. She's willing to make appointment in meantime if necessary. Please advise. Patient would like notified either way. Requested Prescriptions Pending Prescriptions Disp Refills clobetasol (TEMOVATE) 0.05 % ointment 30 g 3 Sig: USE 1 TO 2 TIMES A WEEK TO AFFECTED AREA DENICE DONNELLY RN documented in this encounter [facility] 10-18-2021 Miscellaneous Notes Received faxed request for 90 day supply of Clobetasol ordered today by Hilda. signed form faxed back to [facility] documented in this encounter [facility] 05-31-2020 Note HNO ID: [id number] Author: Hilda Parsons Service: ? Author Type: Nurse Practitioner Type: Progress Notes Filed: 05/31/2020 12:37 PM Note Text: Ada Krause is a 84 year old female who presents today for a vulvar biopsy. Indication: Persistent vulvar lesion UNIVERSAL PROTOCOL / SAFETY CHECKLIST Procedure to be performed: vulvar lesion Sign in Communication: Completed Time Out: Team Confirms the Correct Patient, Correct Procedure, Correct Site and Site Marking, Correct Position (if applicable), Prep and Dry Time (if applicable). Time: 1116 Affirmation of Time Out: YES Sign Out Discussion: Completed Hilda Parsons APRN.CNP PROCEDURE NOTE: GROSS LESIONS: Yes, erosion to inner bilateral labia. Erosion is improving. BIOPSY: right and left labia - each area was cleansed with betadine and anesthetized with 0.5 mL 1% lidocaine with 1:100,000 epi. 3 mm Angela punch used to biopsy region on each labia. HEMOSTASIS: Obtained with silver nitrate and pressure Dr Leigh present. Procedure Summary: Patient tolerated procedure well. ASSESSMENT: Vulvar lesion - erosion improving with continued clobetasol PLAN: Specimens labeled and sent to Pathology. Will notify patient of results in 1-2 weeks. Post-procedure instructions reviewed and written material given to the patient. Hilda Parsons APRN.CNP [facility] 05-23-2020 Note HNO ID: [id number] Author: Hilda Parsons Service: ? Author Type: Nurse Practitioner Type: Progress Notes Filed: 05/23/2020 1:04 PM Note Text: Ada Krause is a 84 year old female who presents today for a vulvar biopsy. Indication: Persistent vulvar lesion UNIVERSAL PROTOCOL / SAFETY CHECKLIST Procedure to be performed: vulvar biopsy Sign in Communication: Completed Time Out: Team Confirms the Correct Patient, Correct Procedure, Correct Site and Site Marking, Correct Position (if applicable), Prep and Dry Time (if applicable). Time: 1156 Affirmation of Time Out: YES Sign Out Discussion: Completed Hilda Parsons APRN.CNP PROCEDURE NOTE: GROSS LESIONS: Yes, erosion to bilateral labia. Small area of depigmented skin to lower portion of erosion to left labia BIOPSY: Left labia - Area was cleansed with betadine and anesthetized with 0.5mL 1% lidocaine with 1:100,000 epi. 3mm [place] punch used to biopsy region. HEMOSTASIS: Obtained with silver nitrate Procedure Summary: Patient tolerated procedure well. ASSESSMENT: Vulvar lesion PLAN: Specimens labeled and sent to Pathology. Will notify patient of results in 1-2 weeks. Post-procedure instructions reviewed and written material given to the patient. Hilda Parsons APRN.CNP [facility] 05-23-2020 Note HNO ID: [id number] Author: Hilda Parsons Service: ? Author Type: Nurse Practitioner Type: Progress Notes Filed: 05/23/2020 1:04 PM Note Text: Ada Krause is a 84 year old female who presents for problem visit lichen sclerosus follow-up HPI: Has tapered clobetasol to twice weekly. No itching or irritation. No incontinence - does not wear protection. PAST MEDICAL HISTORY Diagnosis Date - Carotid stenosis last dopplers 08/2016 done at [place] - Colitis - Essential hypertension - Fatigue - IBS (irritable bowel syndrome) - Nodular goiter - Pure hypercholesterolemia PAST SURGICAL HISTORY Procedure Laterality Date - APPENDECTOMY 1955 - ; THYROIDECTOMY TOTAL OR COMPLETE Bilateral 03/05/2017 Dr. Liz Up - DISCISSION,2ND CATARACT,LASER Right 01/12/2019 Yag Capsulotomy - LIVER SURGERY HX 1984 - OOPHORECTOMY, PART/TOTAL UNILAT/BILAT Bilateral 1983 - REMOVAL OF TONSILS,<12 Y/O 1950 Tonsillectomy - REMV CATARACT EXTRACAP,INSERT LENS Cataract Extraction with PC IOL OU - REPAIR DETACD RETINA,INJECT AIR/GAS 05/2011 Pneumatic Retinopexy s/p HST left eye - TOTAL ABDOM HYSTERECTOMY 1983 Hysterectomy, DORINDA - WRIST SURGERY HX 1957 - YAG CAPSULOTOMY OD (RIGHT EYE) Right 01/12/2019 FAMILY HISTORY Problem Relation Age of Onset - Heart Father - Alcohol/Drug Father - Thyroid Father - Heart Mother - Cataract Mother - Cataract Sister - Thyroid Sister - other (Other) Sister - Thyroid Paternal Grandfather Social History Tobacco Use - Smoking status: Never Smoker - Smokeless tobacco: Never Used Substance Use Topics - Alcohol use: Yes Comment: occasional - Drug use: No Current Outpatient Medications Medication Sig - clobetasol (TEMOVATE) 0.05 % ointment Apply 1 application to affected area twice daily. TO AFFECTED AREA. - lisinopril (ZESTRIL, PRINIVIL) 5 mg tablet Take 5 mg by mouth once daily. - ferrous sulfate (IRON) 325 mg (65 mg iron) tablet Take 325 mg by mouth daily with breakfast. - famotidine (PEPCID) 40 mg tablet - levothyroxine (SYNTHROID) 75 mcg tablet - Gqvxk-8-HQB-EPA-Fish Oil (FISH OIL) 1,000 mg (120 mg-180 mg) cap Take 2 g by mouth twice daily. - ranitidine (ZANTAC) 150 mg tablet Take 1 tablet by mouth as needed. - simvastatin (ZOCOR) 20 mg tablet Take 1 tablet by mouth once daily. - biotin 5 mg tab Take 5 mg by mouth once daily. - propylene glycol (SYSTANE BALANCE) 0.6 % drop Use 1 Drop in both eyes four times daily as needed. - CHLORDIAZEPOXIDE/CLIDINIUM BR (LIBRAX, WITH CLIDINIUM, ORAL) Take by mouth as needed. - MULTIVIT ANDMINERALS/FERROUS FUM (MULTI VITAMIN ORAL) Take by mouth once daily. No current facility-administered medications for this visit. Allergies As of Date: 05/23/2020 Allergen Noted Reaction SUCRALFATE 01/25/2013 Hives OMEPRAZOLE 12/07/2013 Hives PANTOPRAZOLE 02/25/2017 Other: See Comments SULFA (SULFONAMIDE ANTIBIOTICS) 12/02/2013 Intolerance and Vomiting Fully Assessed 05/23/2020 REVIEW OF SYSTEMS Bladder: No dysuria, gross hematuria, urinary frequency, urinary urgency, or incontinence. Allergies and current medication updated:Yes EXAM: BP 102/58 Wt 130 lb (59.0kg) GENERAL: pleasant, female in no apparent distress CHEST: Normal inspiratory effort PELVIC: Vulva with bilateral erosion of skin to inner vulva. Left vulva with small area of depigmentation to middle of erosion. NEURO: alert and oriented x3,exam grossly non-focal ASSESSMENT/PLAN: 1. Vulval lesion - ICD9: 624.8, ICD10: N90.89 (primary diagnosis) - Thickened white LS plaques have resolved, Erosion to bilateral inner labia with small area of depigmentation to left inner labia noted. Discussed vulvar biopsy risks and benefits and agrees to procedure. - SURGICAL PATHOLOGY - BIOPSY OF VULVA 2. Lichen sclerosus et atrophicus - ICD9: 701.0, ICD10: L90.0 - see above - Continue clobetasol twice weekly. Will notify of results. Follow- up as needed. Hilda Parsons APRN.[employer] Medical Decision Making: Problems: Moderate: 1+ chronic illnesses with change Data: Unique test(s) ordered: 1 Risk: Low: Low risk from testing/treatment Medical Decision Making Level: 3 - Low [facility] 04-25-2020 Note HNO ID: [id number] Author: Cody Ortez Service: ? Author Type: Physician Type: Progress Notes Filed: 04/25/2020 3:30 PM Note Text: Assessment and Plan 1. Dry eye syndrome of both eyes -significant punctate epithelial erosions both eyes -lower lid retraction and decreased blink as well as lid margin disease -mild symptoms 2. 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 Posterior vitreous detachment of both eyes -stable both eyes 5. Pseudophakia of both eyes -stable s/p YAG capsulotomy Plan: -Retina precautions reviewed. Return to clinic as soon as possible if increased floaters, flashes, or shadows. -artificial tears four times a day both eyes -lower lid duraplugs placed 04/25/20 (3 months) -follow-up [address] Quesada, sooner as needed for possible plug replacement I have confirmed and edited as necessary the relevant ophthalmic history, ROS, and the neuro exam findings as obtained by others. I have seen and examined Ada Krause. I have discussed the case and the management of this patient's care with the Resident/Fellow, if applicable. I also have reviewed and agree with the assessment and plan as stated above and agree with all of its relevant components. Cody Ortez MD April 25, 2020 3:26 PM [facility] 04-17-2020 Note Patient Outreach ([place] OCC3) ADA KRAUSE ([id number]) 1935 F Date Time Provider Department 04/17/20 [facility] During your visit today, we recorded the following information about you: Allergies As of Date: 04/17/2020 Noted Allergy Reaction SUCRALFATE 01/25/2013 4 - Hives OMEPRAZOLE 12/07/2013 4 - Hives PANTOPRAZOLE 02/25/2017 14 - Other: See Comments Comments: Vaginal itching and Hives SULFA (SULFONAMIDE ANTIBIOTICS) 12/02/2013 5 - Intolerance 11 - Vomiting Date Reviewed: 03/08/2020 Reviewed by: Hilda Parsons - Fully Assessed Order(s):SARS-COVID VACCINE 1ST DOSE APPT [[id number]] Order #: [id number] FUTURE Prescriptions as of 04/17/2020 Sig: CLOBETASOL 0.05 % TOPICAL OIN* Apply 1 application to affect* LISINOPRIL 5 MG TABLET Take 5 mg by mouth once daily. FERROUS SULFATE 325 MG (65 MG* Take 325 mg by mouth daily wi* FAMOTIDINE 40 MG TABLET LEVOTHYROXINE 75 MCG TABLET OMEGA 3-DGP-DFY-FISH OIL 1,00* Take 2 g by mouth twice daily. RANITIDINE 150 MG TABLET Take 1 tablet by mouth as nee* SIMVASTATIN 20 MG TABLET Take 1 tablet by mouth once d* BIOTIN 5 MG TABLET Take 5 mg by mouth once daily. PROPYLENE GLYCOL 0.6 % EYE DR* Use 1 Drop in both eyes four * LIBRAX (WITH CLIDINIUM) ORAL Take by mouth as needed. MULTI VITAMIN ORAL Take by mouth once daily. Problem List As Of Date 04/17/2020 Noted Resolved Horseshoe tear of retina of left eye without de*12/07/2013 Lattice degeneration of peripheral retina [H35.*12/07/2013 Lens replaced by other means [Z96.1] 12/07/2013 08/14/2015 Other vitreous opacities - Both Eyes [H43.399] 06/20/2014 08/14/2015 Vitreous floaters [H43.399] 12/22/2014 08/14/2016 Dry eyes [H04.123] 12/22/2014 08/14/2015 Posterior vitreous detachment of both eyes [H43*12/22/2014 Vitreous floaters of both eyes [H43.393] 08/14/2015 Dry eye syndrome of both eyes [H04.123] 08/14/2015 Pseudophakia of both eyes [Z96.1] 08/14/2015 Nodular goiter [E04.9] More... Fatigue [R53.83] Thyroid mass [E07.9] 01/30/2017 03/06/2017 More... Goiter [E04.9] 03/05/2017 03/06/2017 Lichen sclerosus et atrophicus [L90.0] 10/02/2017 After-cataract obscuring vision, right [H26.491]12/19/2018 Letter Text Encounter Status:Closed by HAYDEN PRODUSER on 04/20/20 [facility] documented as of this encounter (statuses as of 10/18/2021) [facility]12-13-2017 History of Past illness Narrative* Problem Noted Date Diagnosed Date Resolved Date Goiter 03/05/2017 03/06/2017 Thyroid mass 01/30/2017 03/06/2017 Overview: Added automatically from request for surgery [id number] Vitreous floaters 12/22/2014 08/14/2016 Dry eyes 12/22/2014 08/14/2015 Other vitreous opacities - Both Eyes 06/20/2014 08/14/2015 Lens replaced by other means 12/07/2013 08/14/2015 documented as of this encounter (statuses as of 03/03/2023) [facility] Lichen sclerosus et atrophicus Circumscribed scleroderma [facility] in this encounter [facility] [place] [facility] Diagnosis Lichen sclerosus et atrophicus Circumscribed scleroderma documented in this encounter [facility] Summary Purpose Family History No Family History Records FoundNo Family History Records FoundNo Family History Records Found Advance Directives Documents on File Type Date Recorded 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 Advance Directive(s) 03/05/2017 6:54 AM s ent to admitting to scan Advance Directive(s) 03/05/2017 1:28 PM Documents on File Type Date Recorded 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 Advance Directive(s) 03/05/2017 1:28 PM Additional Source Comments INFORMATION SOURCE (unrecogn ized section and content) DATE CREATED AUTHOR AUTHOR'S ORGANIZ ATION 09/19/2017 [facility] [employer] DATE CREATED AUTHOR AUTHOR'S ORGANIZ ATION 04/07/2021 [facility] Source Comments (unrecognize d section and content) In the event this informatio n is protected by the Federal Confidentiality of Alcohol and Drug Abuse Patient Records regulations: The Federal rules restrict any use of the information to criminally investigate or prosecute any alcohol or drug abuse patient.[facility] the event this information is protected by the Federal Confidentiality of Alcohol and Drug Abuse Patient Records regulations: The Federal rules restrict any use of the information to criminally investigate or prosecute any alcohol or drug abuse patient.[facility] Care Teams (unrecognized sec tion and content) [employer] Web Developer Relationship Specialty Start Date End Date Liz Frank DO [address] [place] [id number] PCP - General Family Medicine 12/24/16 Nikunj Dias MD [facility] [address] [phone] Specialty Ramp [employer] Att[employer] Endocrinology 01/03/17 Liz Up MD [address] [place] [phone] General Surgery 01/03/17 Reason for Visit (unrecogniz ed section and content) FOR RECORDS PERTAINING TO PATIENTS WHO ARE OR HAVE BEEN ENROLLED IN A CHEMICAL DEPENDENCY/SUBSTANCEABUSE PROGRAM, SOME INFORMATION MAY BE OMITTED. This clinical summary was aggregated from multiple sources. Caution should be exercised in using it in the provision of clinical care. This summary normalizes information from multiple sources, and as a consequence, information in this document may materially change the coding, format and clinical context of patient data. In addition, data may be omitted in some cases. CLINICAL DECISIONS SHOULD BE BASED ON THE PRIMARY CLINICAL RECORDS. [facility]. provides no warranty or guarantee of the accuracy or completeness of information in this document.
[2023-05-05 15:34] LABS: Absolute Lymphocyte Count 0.73 X10^3/uL (0.83-4.51); Absolute Neutrophil Count 3.8 X10^3/uL (2.0-7.7); Basophil# 0.03 X10^3/uL; Basophil% 0.6 % (0-1); Eosinophil# 0.06 X10^3/uL; Eosinophils% 1.2 % (0-5); Hematocrit 47.1 % (37-47); Hemoglobin 14.6 g/dL (12.0-15.0); Lymphocyte # 0.73 X10^3/ul (0.83-4.51); Lymphocyte % 14.4 % (19-41); Mean Corpuscular Volume 96.9 fL (81-99); Mean Platelet Vol. 10.4 fl (6.2-12.0); Monocyte# 0.39 X10^3/uL; Monocyte% 7.7 % (0-10); NRBC Flagged by Analyzer 0 % (0-5); Neutrophil # 3.84 X10^3/uL (2.7-7.7); Neutrophil % 75.5 % (47-70); Platelet Count 233 K/mm3 (150-450); RBC Distribution Width CV 13.4 % (11.6-14.6); RBC Distribution Width SD 47.7 fl (35.1-43.9); Red Blood Count 4.86 M/mm3 (4.2-5.4); White Blood Count 5.1 K/mm3 (4.4-11.0)
[2023-05-05 15:50] LABS: Vitamin B12 788 pg/mL (211-911); Vitamin D,25 Hydroxy 69.9 ng/mL
[2023-05-05 16:22] LABS: AST(SGOT) 27 U/L (15-37); Alanine Aminotransfer ALT/SGPT 35 U/L (13-56); Albumin, Serum 3.3 g/dL (3.2-5.0); Alkaline Phosphatase 61 U/L (45-117); Anion Gap 8 (5-15); BUN 18 mg/dL (7-18); BUN/Creat Ratio 24.3 RATIO (10-20); Calcium,Total 8.7 mg/dL (8.5-10.1); Chloride 103 mmol/L (98-107); Creatinine, Serum 0.74 mg/dL (0.55-1.02); EST Glomerular Filtration Rate 79 mL/min (>60); Est Glom Filt Rate - Afr Amer 96 mL/min (>60); Ferritin 142 ng/mL (8-252); Globulin 3.4 g/dL (2.2-4.2); Glucose 104 mg/dL (74-106); Iron 88 ug/dL (50-170); Potassium 3.9 mmol/L (3.5-5.1); Protein, Total 6.7 g/dL (6.4-8.2); Sodium Level 138 mmol/L (136-145); T4 Free Direct 1.29 ng/dL (0.76-1.46); Thyroid Stim Hormone (TSH) 1.12 uIU/mL (0.358-3.74)
[2023-05-07 11:04] LABS: CRP < 2.90 mg/L (0.0-3.0)
== END | disposition home or self-care (01) ==
LOC: BFHLAB 11:40
PROVIDERS: PCP Nurse Practitioner Family; Visit Provider Nurse Practitioner Family
DX: R53.83 Other fatigue (principal); I10 Essential (primary) hypertension; E55.9 Vitamin D deficiency, unspecified; E03.9 Hypothyroidism, unspecified
CPT/HCPCS: 36415; 80053; 82306; 82607; 82728; 83540; 84439; 84443; 85025; 86140

== ENCOUNTER → 2023-07-14 | Outpatient (CLI) | payer MEDICARE, OTHER, SELFPAY ==
--- NOTE | 2023-07-14 14:09 | CT_ITS ---
STUDY: CT CHEST, ABDOMEN T PELVIS WITH CONTRAST REASON FOR EXAM: Female, 87 years old. ABNORMAL WEIGHT LOSS RADIATION DOSAGE (If Supplied By Facility): CTDIvol = ( 6.77 ) mGy, DLP = ( 433.35 ) mGycm TECHNIQUE: Transaxial imaging was performed following intravenous administration of Oral and amp; IV Redi-CAT and amp; 100mL Isovue-300. Multiplanar coronal and sagittal images were reformatted. Individualized dose optimization techniques were used for this CT. COMPARISON: No relevant priors. FINDINGS: CHEST Hyperinflation. The lungs are clear. There is no demonstrated pleural abnormality. There are calcifications of the coronary arteries. Normal mediastinum. Normal hilar regions. Normal unenhanced pulmonary arteries. Normal aorta arch and descending thoracic aorta. There are degenerative changes of the thoracic spine. Increased kyphosis. ABDOMEN There is a 1.2 cm cyst in the lateral inferior aspect of the right lobe of the liver. Normal gallbladder and extrahepatic biliary system. Normal spleen. Normal pancreas. Normal bilateral adrenal glands. Normal right kidney. There is a 3.9 cm x 2.7 cm cyst in the upper medial portion of the left kidney. Small left parapelvic renal cysts. Normal visualized stomach. Normal small intestine. Large amount of fecal material is seen in the colon. Scattered sigmoid diverticula. The appendix is visualized and appears normal. There is diffuse atherosclerotic calcification of the abdominal aorta, without a demonstrated aneurysm. Normal inferior vena cava. Normal retroperitoneum. Small left inguinal hernia containing fat. Grade 1 anterolisthesis of L4 on L5. Facet joint osteoarthritis. PELVIS Normal urinary bladder. The patient is status post nephrectomy. There is no pelvic fluid. There is no pelvic lymphadenopathy or mass lesion. There is diffuse atherosclerotic calcification of the pelvic arteries. CT/CT Chest, Abd, Pel w/Contrast IMPRESSION: Small cyst in the right lobe of the liver. Left renal cysts. Large amount of fecal material is seen throughout the colon. Electronically Signed: Jaspreet Gustafson MD at 15:37 EDT ,
[2023-07-14 14:34] LABS: CREATININE FINGERSTICK < 1.0 mg/dL (0.55-1.02); EGFR FINGERSTICK > 60.0000 mL/min (>60)
== END | disposition home or self-care (01) ==
LOC: CT 14:05
PROVIDERS: PCP Family Medicine; Referring Provider Family Medicine; Visit Provider Family Medicine
DX: R63.4 Abnormal weight loss (principal); R68.81 Early satiety; R53.83 Other fatigue
CPT/HCPCS: 71260; 74177; Q9967

== ENCOUNTER 2023-08-19 11:43 | Emergency (ER) | payer MEDICARE, OTHER, SELFPAY ==
[2023-08-19 11:43] VITALS: BP 163/61; PULSE 97; RESP 14; TEMP 36.1; O2SAT 97; BMI 22.2
--- NOTE | 2023-08-19 12:05 | VDLE_ITS ---
Reason For Study: LLE Pain RIGHT LEFT CFV is compressible, spontaneous, phasic, GSV is normal. competent and demonstrates normal CFV is compressible, spontaneous, phasic, augmentation. competent, and demonstrates normal Procedure augmentation. This is a venous duplex using B-mode, color FV is compressible, spontaneous, phasic, flow and spectral Doppler. competent and demonstrates normal Exam performed portable in ED. augmentation. The exam was diagnostic. POP V is compressible, spontaneous, phasic, A preliminary report was called and/or faxed competent and demonstrates normal to ED RN. augmentation. T/P Trunk is compressible. PTV is compressible. LT PerV is compressible. VL/Venous Duplex US, Unilateral Interpretation Summary There is no evidence of left lower extremity deep vein thrombosis. Left great s aphenous vein appears patent and compressible segmentally. Normal flow patterns right common femoral vein Ordering Physician: Ana Mcfarland Referring Physician: Fredrick Frank Performed By: Colin Damon RVT
--- NOTE | 2023-08-19 14:15 | EX.ED.DYSGE1 ---
HPI History of Present Illness Chief Complaint: Cellulitis Detail of Chief Complaint: Left leg redness and pain Informant: patient Onset/Context/Timing Onset: Today Narrative Narrative: Patient presents secondary to left leg redness and pain. She states this morning she was watering her garden when she noted a small red itchy lump on the top of her left foot. She thought she may have been bitten by a spider or a bug. Over the course of the morning redness has spread up to her palmer. She was seen last fall with similar findings and was found to have cellulitis. She denies fever, chills, or overall ill feeling. No obvious open wounds to her leg. [facility] Medical History Thyroid disease TIA (transient ischemic attack) Home Medications ?Medication ?Instructions ?Recorded ?Last Taken ?Type calcium carbonate 600 mg-vitamin 1 tab PO DAILY@0800 01/08/13 Unknown History D3 20 mcg (800 unit) tablet (Caltrate with Vitamin D3) chlordiazepoxide HCl 10 mg capsule 10 mg PO TID PRN PRN Anxiety 01/08/13 Unknown History multivitamin with folic acid 400 1 tab PO DAILY 01/08/13 Unknown History mcg tablet (Thera) omega-3 fatty acids-fish oil 340 1 ea PO 01/08/13 Unknown History mg-1,000 mg capsule pravastatin 20 mg tablet 20 mg PO DAILY 01/08/13 Unknown History Ranitidine [Zantac] 150 mg PO BID 04/29/13 Unknown History cephalexin 500 mg capsule 500 mg PO Q6 #40 CAPSULES 01/05/23 Unknown Rx cephalexin 500 mg capsule 500 mg PO Q6 #40 CAPSULES 08/19/23 Unknown Rx Allergy/AdvReac Type Severity Reaction Status Date / Time omeprazole Allergy Abd Verified 08/19/23 11:44 cramps/diarrhea pantoprazole Allergy Abd Verified 08/19/23 11:44 cramps/diarrhea Sulfa (Sulfonamide Allergy Hives Verified 08/19/23 11:44 Antibiotics) phenazopyridine HCl (From AdvReac Vomiting Verified 08/19/23 11:44 Pyridium) RSV Vaccine AdvReac Made me Uncoded 01/05/23 08:35 horribly ill Surgical History Hx of appendectomy Social History Smoking Status: Former smoker ROS ROS ED Constitutional Constitutional ED: Denies chills or fever(s) Eyes Eyes: Denies change in vision ENT ENT ED: Denies rhinorrhea or sore throat Cardiovascular Cardiovascular: Denies chest pain or palpitations Respiratory/Chest Respiratory/Chest: Denies cough or dyspnea Gastrointestinal Gastrointestinal: Denies abdominal pain, nausea or vomiting Musculoskeletal Musculoskeletal: Reports extremity pain; Denies back pain Integumentary Reports rash; Denies Abrasions Neurologic Neurologic: Denies headache(s) or weakness Psychiatric Psychiatric: Denies anxiety or depression Allergic/Immunologic Allergic/Immunologic ED: Denies lip swelling or urticaria EXAM Physical Exam Const Vital Signs: 08/19/23 11:43 08/19/23 14:26 Temperature 96.9 F L 98.6 F Temperature Source Temporal Pulse Rate 97 79 Respiratory Rate 14 18 Blood Pressure 163/61 H Blood Pressure Mean 95 Pulse Ox 97 96 Oxygen Delivery Method Room Air Positive well nourished and well developed General Appearance ED: well developed HEENT Reports moist mucous membranes Eyes EOMs intact bilaterally Chest Wall inspection of chest normal and palpation of chest normal Resp normal respiratory effort and clear to auscultation bilaterally Cardio regular rate and regular rhythm GI non-tender Palpation: soft Extremity Extremity Narrative: Erythema and warmth noted over the top of the left foot and up to the left palmer just distal to the knee. No open wounds appreciated. No focal calf tenderness. Neuro oriented x3 and no sensory deficits noted Motor Exam: strength 5/5 throughout Psych mental status grossly normal MDM MDM MDM Narrative Medical decision making narrative: Left lower extremity venous ultrasound obtained to evaluate for potential DVT. This is negative. Patient's exam findings are consistent with cellulitis, although spread is fairly quick. She did well with Keflex treatment with a similar complaint last fall. I will write her a course of Keflex and she will closely monitor her symptoms. Return instructions provided. Radiography Diagnostic Testing: Clinical Impression(s) from Imaging Studies Venous Doppler Study 08/19/23 12:05 Interpretation Summary There is no evidence of left lower extremity deep vein thrombosis. Left great saphenous vein appears patent and compressible segmentally. Normal flow patterns right common femoral vein Ordering Physician: Ana Mcfarland Referring Physician: Fredrick Frank Performed By: Colin Damon RVT Discharge Plan Triage Chief Complaint: Cellulitis ED Provider: Ana Mcfarland Dx/Rx/DC Orders Clinical Impression: Cellulitis Instructions: ED Cellulitis Prescriptions: New cephalexin 500 mg capsule 500 mg PO Q6 Qty: 40 0RF No Action chlordiazepoxide HCl 10 MG capsule 10 mg PO TID PRN PRN (Reason: Anxiety) pravastatin 20 MG tablet 20 mg PO DAILY omega-3 fatty acids-fish oil 1 EACH capsule 1 ea PO multivitamin with folic acid [Thera] 1 TABLET tablet 1 tab PO DAILY calcium carbonate-vitamin D3 [Caltrate with Vitamin D3] 1 TAB tablet 1 tab PO DAILY@0800 Ranitidine [Zantac] 150 MG tablet 150 mg PO BID cephalexin [cephalexin] 500 mg capsule 500 mg PO Q6 Qty: 40 0RF Primary Care Provider: Fredrick Frank Referrals: Fredrick Frank DO [Primary Care Provider] - 1-2 Weeks Print Language: American Disposition Disposition: Home, Self Care Discharge Date/Time: 08/19/23 14:27
[2023-08-19] MEDS: Cephalexin 250 MG Capsule 500 MG PO (14:25)
[2023-08-19 14:26] VITALS: PULSE 79; RESP 18; TEMP 37; O2SAT 96
== END 2023-08-19 14:27 | disposition home or self-care (01) ==
PROVIDERS: Emergency Provider Emergency Medicine; PCP Family Medicine; Visit Provider Emergency Medicine
DX: L03.116 Cellulitis of left lower limb (principal); Z87.891 Personal history of nicotine dependence; Z86.73 Personal history of transient ischemic attack (TIA), and cerebral infarction without residual deficits
CPT/HCPCS: 93971; 99282

== ENCOUNTER 2023-11-06 14:30 | Outpatient (RCR) | payer MEDICARE, OTHER, SELFPAY ==
--- NOTE | 2023-09-10 14:46 | HP.PTEVAL_ITS ---
Patient's Visit Information Visit Information Visit Information: ADA GOOD is a 88 year old F referred to Physical Therapy by Dr. Fredrick Frank DO with a diagnosis of . Date of Evaluation: 09/10/23 Physical Therapist: Albin Flores PT, Cert MDT, OCS Visit Plan Frequency: 2x /Week Duration: 4 Weeks Plan: H/O RTC TEAR ~ 10 YEARS Subjective Subjective: This 88 y/o female presents to physical therapy with right shoulder pain . Patient has torn RTC for ~ 10 years . Shoulder weakness progressively worse . Patient has h/o off getting cortisone injections last January. Patient had x-rays -. Patient seen DR torito [facility]. Patient has non pain. Patient has decrease ROM and weakness. No medication; Denies paresthesia/tingling-. Sleeping okay. Patient has limitations' with ADL/housework task and self hygiene . Patient condition affects QOL and function. Patient goals to get stronger, SOCAIL: VOCATION: retired Objective Objective: POSTURE mod thoracic kyphosis PALAPTION: tender AC NEURO: denies parestehesia/tingling AROM: shoulder flexion 120 degrees ,abduction 120 degrees in scaption ,ER 70 degrees ,IR L2 MMT: ( peak force) infraspinatus 0 ,supraspinatus 2.5 ,subscapularis 10.7 , deltoid 3.2 Special Tests R Shoulder External Rotation Lag Test - RC Tear: Positive R Shoulder Drop Sign - IS Test: Negative R Shoulder Empty Can - SS: Positive R Shoulder Belly Press - SupScap: Negative R Shoulder Neer - Impingement: Positive R Shoulder Leos Theo - Impingement: Positive R Shoulder Speeds Test - Labrum/Biceps: Positive Balance/Special Test Scores Quick DASH Score: 40.9075 Goals Goal 1:: Patient to be I with HEP shoulder Goal Time Frame: 4-6 Weeks Goal 2:: Patient to demonstrate 40% improvement with less pain and improved function hip. Goal Time Frame: 4-6 Weeks Goal 3:: Patient to improve peak force RTC/deltoid by 3-5 # to improve strength band function Goal Time Frame: 4-6 Weeks Goal 4:: Patient to improve quick dash of shoulder by 3-5 point to improve QOL and function Goal Time Frame: 4-6 Weeks Rehabilitation Potential Physical Therapy Diagnosis: This patient has torn RTC for ~ 10 years with weakness ,mild pain impairs ADLS and impairs self hygiene and ADL thus benefit from skilled PT Rehabilitation Potential: Good Anticipated Interventions Patient/Client Instruction: Educate patient on: Condition and Plan of Care For the Purpose of:: To decrease pain, To increase ROM, To improve muscle performance and motor function, To improve ability to perform ADL's, To increase tolerance to activity/condition/position, To improve performance and independence with ADL's, To improve ability of physical actions for home/community/work/leisure, To improve health of tissue, To decrease soft tissue restriction, To increase flexibility/ROM, To prevent re-injury and To improve tolerance to ADL's Therapeutic Exercise to Include: Strength training, Passive ROM and Active ROM Comment: RTC For the Purpose of:: To decrease pain, To increase ROM, To improve muscle performance and motor function, To improve ability to perform ADL's, To increase tolerance to activity/condition/position, To improve ability of physical actions for home/community/work/leisure, To improve health of tissue, To decrease soft tissue restriction, To increase flexibility/ROM and To prevent re-injury TENS: Yes IF ES: Yes Cryotherapy (ice pack, ice massage): Yes Thermo therapy (hot pack): Yes Ultrasound (thermal/non thermal): Yes For the Purpose of:: To decrease pain, To decrease swelling/inflammation and To improve health of tissue Text: Thank you for the opportunity to evaluate your patient. For Medicare and Medicare HMO plans, please review the plan of care and approve it. It will need to be FAXED BACK to us at [phone] for Medicare purposes. For Medicare only, by signing this I certify the plan of care. Please let me know if there are questions or concerns regarding this plan of care. Physician Signature: Date:
--- NOTE | 2023-09-10 14:54 | HP.PTEVAL ---
Patient's Visit Information Visit Information Visit Information: ADA GOOD is a 88 year old F referred to Physical Therapy by Dr. Fredrick Frank DO with a diagnosis of SYMPTOMS AND SIGNS INVOLVING THE MUSCULOSKELETAL. Date of Evaluation: 09/10/23 Physical Therapist: Albin Flores PT, Cert MDT, OCS Visit Plan Frequency: 2x /Week Duration: 4 Weeks Plan: H/O RTC TEAR ~ 10 YEARS Subjective Subjective: This 88 y/o female presents to physical therapy with right shoulder pain . Patient has torn RTC for ~ 10 years . Shoulder weakness progressively worse . Patient has h/o off getting cortisone injections last January. Patient had x-rays -. Patient seen DR torito [facility]. Patient has non pain. Patient has decrease ROM and weakness. No medication; Denies paresthesia/tingling-. Sleeping okay. Patient has limitations' with ADL/housework task and self hygiene . Patient condition affects QOL and function. Patient goals to get stronger, SOCAIL: VOCATION: retired Objective Objective: POSTURE mod thoracic kyphosis PALAPTION: tender AC NEURO: denies parestehesia/tingling AROM: shoulder flexion 120 degrees ,abduction 120 degrees in scaption ,ER 70 degrees ,IR L2 MMT: ( peak force) infraspinatus 0 ,supraspinatus 2.5 ,subscapularis 10.7 , deltoid 3.2 Special Tests R Shoulder External Rotation Lag Test - RC Tear: Positive R Shoulder Drop Sign - IS Test: Negative R Shoulder Empty Can - SS: Positive R Shoulder Belly Press - SupScap: Negative R Shoulder Neer - Impingement: Positive R Shoulder Leos Theo - Impingement: Positive R Shoulder Speeds Test - Labrum/Biceps: Positive Balance/Special Test Scores Quick DASH Score: 40.9075 Goals Goal 1:: Patient to be I with HEP shoulder Goal Time Frame: 4-6 Weeks Goal 2:: Patient to demonstrate 40% improvement with less pain and improved function hip. Goal Time Frame: 4-6 Weeks Goal 3:: Patient to improve peak force RTC/deltoid by 3-5 # to improve strength band function Goal Time Frame: 4-6 Weeks Goal 4:: Patient to improve quick dash of shoulder by 3-5 point to improve QOL and function Goal Time Frame: 4-6 Weeks Goal 5:: Patient be able to perform ADLS with min limitations Rehabilitation Potential Physical Therapy Diagnosis: This patient has torn RTC for ~ 10 years with weakness ,mild pain impairs ADLS and impairs self hygiene and ADL thus benefit from skilled PT Rehabilitation Potential: Good Anticipated Interventions Patient/Client Instruction: Educate patient on: Condition and Plan of Care For the Purpose of:: To decrease pain, To increase ROM, To improve muscle performance and motor function, To improve ability to perform ADL's, To increase tolerance to activity/condition/position, To improve performance and independence with ADL's, To improve ability of physical actions for home/community/work/leisure, To improve health of tissue, To decrease soft tissue restriction, To increase flexibility/ROM, To prevent re-injury and To improve tolerance to ADL's Therapeutic Exercise to Include: Strength training, Passive ROM and Active ROM Comment: RTC For the Purpose of:: To decrease pain, To increase ROM, To improve muscle performance and motor function, To improve ability to perform ADL's, To increase tolerance to activity/condition/position, To improve ability of physical actions for home/community/work/leisure, To improve health of tissue, To decrease soft tissue restriction, To increase flexibility/ROM and To prevent re-injury TENS: Yes IF ES: Yes Cryotherapy (ice pack, ice massage): Yes Thermo therapy (hot pack): Yes Ultrasound (thermal/non thermal): Yes For the Purpose of:: To decrease pain, To decrease swelling/inflammation and To improve health of tissue Text: Thank you for the opportunity to evaluate your patient. For Medicare and Medicare HMO plans, please review the plan of care and approve it. It will need to be FAXED BACK to us at [phone] for Medicare purposes. For Medicare only, by signing this I certify the plan of care. Please let me know if there are questions or concerns regarding this plan of care. Physician Signature: Date:
--- NOTE | 2023-10-09 14:57 | HP.PTREVAL_ITS ---
Re-Evaluation Intro: Dr. Fredrick Frank, DO, It has been my pleasure to treat ADA GOOD over the last 9 visits for SYMPTOMS AND SIGNS INVOLVING THE MUSCULOSKELETAL. Please see the progress note below for an update on the physical therapy plan of care! Subjective Subjective: Doing fairly well not as stiffness Objective Objective/Function: * Patient will cont to benefit from skilled PT to due severity of shoulder and progressing towards goals cont to be appropriate POSTURE mod thoracic kyphosis PALAPTION: tender AC NEURO: denies parestehesia/tingling AROM: shoulder flexion 130 degrees ,abduction 120 degrees in scaption ,ER 80 degrees ,IR L2 MMT: ( peak force) infraspinatus 0 ,supraspinatus 4.9 ,subscapularis 12.7 , deltoid 3.6 Plan Plan Plan: H/O RTC TEAR ~ 10 YEARS PT INTERVENTIONS GRADE ROM ,GRADED STRENGTHENING EX LEEANN RTC/POSTURAL ,AND MODALITIES PRN Balance/Gait/Functional tests Balance/Special Test Scores Quick DASH Score: 40.9075 Goals Goals Goal 1:: Patient to be I with HEP shoulder Goal Time Frame: 4-6 Weeks Goal Progress: Progressing Goal 2:: Patient to demonstrate 40% improvement with less pain and improved function hip. Goal Time Frame: 4-6 Weeks Goal 3:: Patient to improve peak force RTC/deltoid by 3-5 # to improve strength band function Goal Time Frame: 4-6 Weeks Goal Progress: Progressing Goal 4:: Patient to improve quick dash of shoulder by 3-5 point to improve QOL and function Goal Time Frame: 4-6 Weeks Goal Progress: Progressing Goal 5:: Patient be able to perform ADLS with min limitations Goal Progress: Progressing Anticipated Interventions Anticipated Interventions Patient/Client Instruction: Educate patient on: Condition and Plan of Care For the Purpose of:: To decrease pain, To increase ROM, To improve muscle performance and motor function, To improve ability to perform ADL's, To increase tolerance to activity/condition/position, To improve performance and independence with ADL's, To improve ability of physical actions for home/co mmunity/work/leisure, To improve health of tissue, To decrease soft tissue restriction, To increase flexibility/ROM, To prevent re-injury and To improve tolerance to ADL's Therapeutic Exercise to Include: Strength training, Passive ROM and Active ROM Comment: RTC For the Purpose of:: To decrease pain, To increase ROM, To improve muscle performance and motor function, To improve ability to perform ADL's, To increase tolerance to activity/condition/position, To improve ability of physical actions for home/community/work/leisure, To improve health of tissue, To decrease soft tissue restriction, To increase flexibility/ROM and To prevent re-injury TENS: Yes IF ES: Yes Cryotherapy (ice pack, ice massage): Yes Thermo therapy (hot pack): Yes Ultrasound (thermal/non thermal): Yes For the Purpose of:: To decrease pain, To decrease swelling/inflammation and To improve health of tissue Re-Evaluation Ending Re-evaluation ending: Please do not hesitate to contact me at [phone] by phone or if you have questions or concerns regarding this new plan of care! Sincerely, Albin Flores, PT, Cert MDT, OCS
--- NOTE | 2023-11-21 12:39 | HP.PTDCSUM ---
Discharge Summary D/C summary: It has been my pleasure to treat ADA GOOD referred by Dr. Fredrick Frank DO, with the diagnosis of SYMPTOMS AND SIGNS INVOLVING THE MUSCULOSKELETAL for a total of 17 visit(s). Discharge Date: Please see the following information for a summary of their discharge status. Subjective Subjective: Doing well improved with function Pain Right Shoulder: Pain Intensity (Out of 10): 0 Overall Improvement % Improvement: 75 Objective Objective/Function: mod thoracic kyphosis PALAPTION: tender AC NEURO: denies parestehesia/tingling AROM: shoulder flexion 135 degrees ,abduction 140 degrees in scaption ,ER 80 degrees ,IR T10 MMT: ( peak force) infraspinatus 0 ,supraspinatus 4.9 ,subscapularis 12.7 , deltoid 3.6 patient made good progress towards goals Goals Goal 1:: Patient to be I with HEP shoulder Goal Progress: Goal Met Goal 2:: Patient to demonstrate 40% improvement with less pain and improved function hip. Goal Progress: Goal Met Goal 3:: Patient to improve peak force RTC/deltoid by 3-5 # to improve strength band function Goal Progress: Goal Met Goal 4:: Patient to improve quick dash of shoulder by 3-5 point to improve QOL and function Goal Progress: Goal Met Goal 5:: Patient be able to perform ADLS with min limitations Goal Progress: Goal Met Plan Plan: D/C D/C Information d/c sentence: If there are questions or concerns regarding this patient's physical therapy, please feel free to call me at [phone]. Thank you for the referral of this patient. Sincerely, Albin Flores, PT, Cert MDT, OCS Balance/Gait/Functional tests Balance/Special Test Scores Quick DASH Score: 38.6350 Improvement % Improvement: 75
== END 2023-11-06 19:00 | disposition home or self-care (01) ==
LOC: PT 14:30
PROVIDERS: PCP Family Medicine; Referring Provider Family Medicine; Visit Provider Family Medicine
DX: R29.898 Other symptoms and signs involving the musculoskeletal system (principal)
CPT/HCPCS: 97110; 97162; 97530

== ENCOUNTER → 2024-03-05 | Outpatient (CLI) | payer MEDICARE, OTHER, SELFPAY ==
--- NOTE | 2024-03-05 10:06 | BI_ITS ---
MAMMOGRAPHY - BILATERAL SCREENING REASON FOR EXAM: Female, 88 years old. Routine annual screening examination. PERTINENT HISTORY: Non-contributory. TECHNIQUE: Digital bilateral breast todd (3D mammographic acquisition) in the CC and MLO projections. 2-D mediolateral oblique (MLO) and craniocaudad (CC) views of both breasts were obtained. CAD: Full Field Digital Mammography with Computer Added Detection was performed. COMPARISON: Comparison is made with prior study dated March 04, 2023 and February 08, 2022. FINDINGS: Breast Composition: The breasts are almost entirely fatty. There are no dominant masses or suspicious calcifications. Stable bilateral secretory calcifications. No other significant abnormalities are identified. There has been no significant change since the prior study. BI/SCRN MAMM (CAD)W/TODD BILAT IMPRESSION: Stable bilateral screening mammogram. Yearly follow-up mammogram recommended. (A) ASSESSMENT CATEGORY: BIRADS Category 2: Benign. A letter regarding these results will be sent to the patient by the facility within 30 days. Approximately 10% of breast cancers are not detected by mammography. A normal mammogram should not delay biopsy of a clinically suspicious abnormality. [id number] Electronically Signed: Jaspreet Gustafson MD at 11:04 EST ,
== END | disposition home or self-care (01) ==
LOC: OPBI 10:05
PROVIDERS: PCP Family Medicine; Referring Provider Family Medicine; Visit Provider Family Medicine
DX: Z12.31 Encounter for screening mammogram for malignant neoplasm of breast (principal)
CPT/HCPCS: 77063; 77067

== ENCOUNTER → 2024-04-01 | Outpatient (CLI) | payer MEDICARE, OTHER, SELFPAY ==
--- NOTE | 2024-04-01 14:24 | RAD_ITS ---
STUDY: X-RAY - PELVIS AND LEFT HIP REASON FOR EXAM: Female, 88 years old. PAIN TECHNIQUE: 3 views of the pelvis and left hip. COMPARISON: CT abdomen/pelvis dated 12/24/2012. FINDINGS: There is a non-specific bowel gas pattern. Normal visualized soft tissue structures. Normal bilateral iliac wings, sacroiliac joints and visualized sacrum. Normal bilateral superior and inferior pubic rami. Normal pubic symphysis. Normal bilateral ischial tuberosities. There are mild osteoarthritic changes of the femoral heads bilaterally with marginal osteophyte formation. There is with mild osteoarthritic spur formation of the acetabular rims bilaterally. There is mild articular joint space narrowing of the hips bilaterally. There is no demonstrated acute fracture. RAD/HIP, UNI W/ Pelvis 2-3 Views IMPRESSION: Mild degenerative arthrosis of the hip joints bilaterally. No demonstrated acute fracture. Electronically Signed: Michael Morris MD at 10:51 EST ,
== END | disposition home or self-care (01) ==
LOC: MTRAD 14:21
PROVIDERS: PCP Family Medicine; Referring Provider Family Medicine; Visit Provider Family Medicine
DX: M25.552 Pain in left hip (principal)
CPT/HCPCS: 73502

== ENCOUNTER → 2024-04-23 | Outpatient (CLI) | payer MEDICARE, OTHER, SELFPAY ==
[2024-04-23 17:45] LABS: Glucose, Dipstick Normal (Normal); Ketone-Dipstick Negative (Negative); Leukocyte Esterase-Dipstick 25 /ul (Negative); Nitrite-Dipstick Negative (Negative); Occult Blood-Urine Negative /ul (Negative); Protein-Dipstick Negative (Negative); Urine Bilirubin Dipstick Negative (Negative); Urine Clarity Clear (Clear); Urine Urobilinogen Normal (Normal)
[2024-04-23 18:08] LABS: Color, Urine Yellow (Yellow)
[2024-04-23 18:23] LABS: Erythrocyte Sedimentation Rate 24 mm/hr (0-30)
[2024-04-23 18:24] LABS: Absolute Lymphocyte Count 0.95 X10^3/uL (0.83-4.51); Absolute Neutrophil Count 3.5 X10^3/uL (2.0-7.7); Basophil# 0.04 X10^3/uL; Basophil% 0.8 % (0-1); Eosinophil# 0.29 X10^3/uL; Eosinophils% 5.6 % (0-5); Hemoglobin 13.5 g/dL (12.0-15.0); Lymphocyte # 0.95 X10^3/ul (0.83-4.51); Lymphocyte % 18.4 % (19-41); Mean Corp Hgb Conc 32.9 g/dL (32-36); Mean Corpuscular Hgb 30.5 pg (27.0-32.0); Mean Corpuscular Volume 92.6 fL (81-99); Mean Platelet Vol. 10.3 fl (6.2-12.0); Monocyte# 0.38 X10^3/uL; Monocyte% 7.4 % (0-10); NRBC Flagged by Analyzer 0 % (0-5); Neutrophil # 3.49 X10^3/uL (2.7-7.7); Neutrophil % 67.6 % (47-70); Platelet Count 270 K/mm3 (150-450); RBC Distribution Width CV 13.2 % (11.6-14.6); RBC Distribution Width SD 45.1 fl (35.1-43.9); Red Blood Count 4.43 M/mm3 (4.2-5.4); White Blood Count 5.2 K/mm3 (4.4-11.0)
[2024-04-23 18:25] LABS: ALB/GLOB Ratio 1.1 RATIO (0.9-2.4); AST(SGOT) 17 U/L (15-37); Alanine Aminotransfer ALT/SGPT 22 U/L (13-56); Albumin, Serum 3.5 g/dL (3.2-5.0); Alkaline Phosphatase 76 U/L (45-117); Anion Gap 8 (5-15); BUN 23 mg/dL (7-18); BUN/Creat Ratio 35.4 RATIO (10-20); Calcium,Total 9.3 mg/dL (8.5-10.1); Chloride 104 mmol/L (98-107); Creatinine, Serum 0.65 mg/dL (0.55-1.02); EST Glomerular Filtration Rate 92 mL/min (>60); Est Glom Filt Rate - Afr Amer 111 mL/min (>60); Globulin 3.3 g/dL (2.2-4.2); Glucose 98 mg/dL (74-106); Potassium 4.5 mmol/L (3.5-5.1); Protein, Total 6.8 g/dL (6.4-8.2); Sodium Level 137 mmol/L (136-145)
== END | disposition home or self-care (01) ==
LOC: BFHLAB 14:49
PROVIDERS: PCP Family Medicine; Visit Provider Family Medicine
DX: R53.1 Weakness (principal); R53.83 Other fatigue; R42 Dizziness and giddiness; R35.0 Frequency of micturition
CPT/HCPCS: 36415; 80053; 81002; 84443; 85025; 85652

== ENCOUNTER → 2024-04-30 | Outpatient (CLI) | payer MEDICARE, OTHER, SELFPAY ==
--- NOTE | 2024-04-30 12:41 | CT_ITS ---
EXAM: CT scan of the head with and without IV contrast. CLINICAL INDICATION: COMPARISON: None. TECHNIQUE: Helical imaging of CT head was performed without IV contrast. One or more of the following dose reduction techniques were used: automated exposure control, adjustment of the mA and/or kV according to patient size, use of iterative reconstruction technique. FINDINGS: BRAIN PARENCHYMA: No evidence for acute hemorrhage or large territory infarct. EXTRA-AXIAL SPACES: No acute extra-axial fluid collection identified. Basal cisterns are patent. MIDLINE SHIFT: None. VENTRICLES: No evidence of hydrocephalus. SCALP SOFT TISSUES: No significant abnormality. CALVARIUM: No acute process. VISUALIZED PARANASAL SINUSES: No air-fluid levels. MASTOID AIR CELLS: Grossly clear. CT/Brain/Head W/WO Contrast IMPRESSION: No evidence of acute intracranial abnormality. CLINICAL HISTORY: Weakness. Headaches. Daughter has a history of aneurysm. COMPARISON: None TECHNIQUE: Helical imaging of CT head was performed without and with IV contrast. 100 mL of Isovue-300 was injected intravenously. One or more of the following dose reduction techniques were used: automated exp osure control, adjustment of the mA and/or kV according to patient size, use of iterative reconstruction technique. FINDINGS: BRAIN PARENCHYMA: No evidence for acute hemorrhage or large territory infarct. Mild cerebral atrophy. Decreased attenuation in bilateral periventricular distribution suggestive of chronic small EXTRA-AXIAL SPACES: No acute extra-axial fluid collection identified. Basal ci sterns are patent. MIDLINE SHIFT: None. VENTRICLES: No evidence of hydrocephalus. SCALP SOFT TISSUES: No significant abnormality. CALVARIUM: No acute process. VISUALIZED PARANASAL SINUSES: No air-fluid levels. MASTOID AIR CELLS: Grossly clear. IMPRESSION: Mild cerebral atrophy. No acute abnormality is seen. Reading Location: [id number]
== END | disposition home or self-care (01) ==
LOC: CT 12:40
PROVIDERS: PCP Family Medicine; Referring Provider Family Medicine; Visit Provider Family Medicine
DX: R42 Dizziness and giddiness (principal); R51.9 Headache, unspecified
CPT/HCPCS: 70470; Q9967

== ENCOUNTER → 2024-08-23 | Outpatient (CLI) | payer MEDICARE, OTHER, SELFPAY | END | disposition home or self-care (01) | LOC: MTLAB 13:17 | PROVIDERS: PCP Family Medicine; Referring Provider Internal Medicine Endocrinology, Diabetes & Metabolism; Visit Provider Internal Medicine Endocrinology, Diabetes & Metabolism | DX: E03.9 Hypothyroidism, unspecified (principal) | CPT/HCPCS: 36415; 84439; 84443 ==

== ENCOUNTER → 2024-09-20 | Outpatient (CLI) | payer MEDICARE, OTHER, SELFPAY ==
--- NOTE | 2024-09-20 10:28 | RAD_ITS ---
PROCEDURE: KNEE 4 OR MORE VIEWS; TIBIA FIBULA 2 VIEWS 09/20/2024 REASON FOR EXAM: PAIN IN KNEE; PAIN IN LEG TECHNIQUE: KNEE 4 OR MORE VIEWS; TIBIA FIBULA 2 VIEWS COMPARISON: None FINDINGS: No displaced fracture or traumatic malalignment. Tiny calcification near the medial femoral condyle may be sequela of remote injury. There is mild joint space narrowing and osteophyte formation throughout the knee. No significant joint effusion. Bone mineral density is subjectively normal. There are tiny calcifications in the anterior palmer soft tissues, possibly phleboliths. There is soft tissue swelling throughout the lower leg and ankle. RAD/Tibia & Fibula 2 Views IMPRESSION: 1. Soft tissue swelling in the lower leg and ankle. 2. Mild osteoarthritis of the left knee. 3. No displaced fracture. Reading Location: [id number]
--- NOTE | 2024-09-20 10:28 | RAD_ITS ---
PROCEDURE: KNEE 4 OR MORE VIEWS; TIBIA FIBULA 2 VIEWS 09/20/2024 REASON FOR EXAM: PAIN IN KNEE; PAIN IN LEG TECHNIQUE: KNEE 4 OR MORE VIEWS; TIBIA FIBULA 2 VIEWS COMPARISON: None FINDINGS: No displaced fracture or traumatic malalignment. Tiny calcification near the medial femoral condyle may be sequela of remote injury. There is mild joint space narrowing and osteophyte formation throughout the knee. No significant joint effusion. Bone mineral density is subjectively normal. There are tiny calcifications in the anterior palmer soft tissues, possibly phleboliths. There is soft tissue swelling throughout the lower leg and ankle. RAD/Knee 4 or More Views IMPRESSION: 1. Soft tissue swelling in the lower leg and ankle. 2. Mild osteoarthritis of the left knee. 3. No displaced fracture. Reading Location: [id number]
== END | disposition home or self-care (01) ==
LOC: MTRAD 10:26
PROVIDERS: PCP Family Medicine; Referring Provider Family Medicine; Visit Provider Family Medicine
DX: M79.605 Pain in left leg (principal); M25.562 Pain in left knee
CPT/HCPCS: 73564; 73590

== ENCOUNTER 2024-10-06 08:12 | Emergency (ER) | payer MEDICARE, OTHER, SELFPAY ==
[2024-10-06 08:12] VITALS: BP 173/70; PULSE 78; RESP 16; TEMP 36.3; O2SAT 97; BMI 23.3
[2024-10-06 08:13] VITALS: BP 173/70; PULSE 78; RESP 16; TEMP 36.3; O2SAT 97
--- NOTE | 2024-10-06 08:53 | ED.VIS.LOWEX ---
HPI History of Present Illness Chief Complaint: Laceration Informant: patient and family Narrative Narrative: Presents here with daughter for evaluation of left leg laceration occurring 13 hours ago. She bumped her leg on her son's toolbox. She is then states she wiped it with a Kleenex with possible silicone. She is urged to go to the ED yesterday. States has been drainage concerned and white color throughout the night. No fevers no chills no diabetes history. Tetanus in last 5 years. She has had cellulitis left leg in the past therefore brought in by daughter for evaluation. Tetanus Immunization: <5 years Prior similar symptoms: Yes PFSH PFSH Medical History Postoperative primary hypothyroidism Vision problems Tumors IBS (irritable bowel syndrome) Hormone deficiency Hives High cholesterol Cataracts, bilateral Bone fracture Arthritis Anemia Thyroid disease TIA (transient ischemic attack) Home Medications ?Medication ?Instructions ?Recorded ?Last Taken ?Type multivitamin with folic acid 400 1 tab PO DAILY 01/08/13 Unknown History mcg tablet (Thera) cholecalciferol (vitamin D3) 50 50 mcg PO QDAY 07/06/24 Unknown History mcg (2,000 unit) capsule clobetasol 0.05 % topical cream 1 applic topical 4XW 07/06/24 Unknown History ferrous sulfate 325 mg (65 mg 325 mg PO QDAY 07/06/24 Unknown History iron) tablet simvastatin 20 mg tablet 20 mg PO QHS 07/06/24 Unknown History zinc gluconate 50 mg tablet 50 mg PO QDAY 07/06/24 Unknown History levothyroxine 75 mcg tablet 75 mcg PO QDAY #90 tabs 07/12/24 Unknown Rx (Synthroid) cephalexin 500 mg capsule 500 mg PO Q6 #20 CAPSULES 10/06/24 Unknown Rx Allergy/AdvReac Type Severity Reaction Status Date / Time omeprazole Allergy Abd Verified 10/06/24 08:14 cramps/diarrhea pantoprazole Allergy Abd Verified 10/06/24 08:14 cramps/diarrhea Sulfa (Sulfonamide Allergy Hives Verified 10/06/24 08:14 Antibiotics) phenazopyridine HCl (From AdvReac Vomiting Verified 10/06/24 08:14 Pyridium) Family History Father Alcoholism Mother Anemia Bleeding disorder Blood clot in vein H/O heart surgery High cholesterol Sister Thyroid disorder Surgical History History of photorefractive keratectomy History of total thyroidectomy History of surgery of liver H/O: hysterectomy History of tonsillectomy Hx of appendectomy Social History Smoking Status: Former smoker ROS ROS ED Constitutional Constitutional ED: Denies fever(s) Cardiovascular Cardiovascular: Denies chest pain Respiratory/Chest Respiratory/Chest: Denies cough Gastrointestinal Gastrointestinal: Denies diarrhea or vomiting Musculoskeletal Musculoskeletal: Denies none Integumentary Reports wounds; Denies rash Neurologic Neurologic: Denies weakness EXAM Physical Exam Const Vital Signs: 10/06/24 08:12 10/06/24 08:13 10/06/24 09:21 Temperature 97.4 F L 97.4 F L 97.8 F Temperature Source Temporal Oral Pulse Rate 78 78 78 Respiratory Rate 16 16 16 Blood Pressure 173/70 H 173/70 H 155/68 H Blood Pressure Mean 104 104 97 Pulse Ox 97 97 99 Oxygen Delivery Method Room Air Room Air Positive well nourished and well developed General Appearance ED: well developed HEENT normocephalic and atraumatic Eyes General Eye ED: Yes normal appearance of both eyes Neck full ROM Resp normal respiratory effort and normal air movement Cardio regular rate and regular rhythm GI soft to palpation Extremity full ROM Extremity Narrative: Left lower leg: Dressing removed from the anterior distal leg. There is a 3 cm laceration horizontally, will is closing, there is swelling around this area there was clear drainage on the dressing. No exudates no streaking. Neuro oriented x3 Skin Skin Narrative: See above MDM MDM MDM Narrative Medical decision making narrative: Interventions / MDM: Differential diagnosis:Left leg laceration, left lower leg swelling Diagnosis considered but do not suspect: N/A My EKG interpretation: N/A Imaging independently reviewed and interpreted by myself: N/A External documents reviewed: N/A Test considered but not ordered:N/A ED course: Nontoxic tetanus up-to-date. Patient wound over 12 hours ago now closing there is some swelling there is clear drainage. Family concerns possible silicone from the next. Discussed with Will over 12 hours this will be allowed to heal by secondary intention as risk of infections increases with closure. There is no gaping wound to require any washouts and closing. I discussed good wound care with patient and daughter. Warm soap and water cleanses bacitracin dressing placed by nursing. She will be started on Keflex in the ED. Prescription to the pharmacy. She has a follow-up with her PCP in 6 days. Discussed return precautions. All questions were answered. Re-evaluation: stable Disposition discussed with patient/family/significant other: Patient and daughter Case discussed with consulting clinician: N/A This note was generated with [employer] dictation software. It may contain incorrect words, spelling, and punctuation that were not noted in checking the note before signing. Discharge Plan Triage Chief Complaint: Laceration ED Provider: Eamon Castro Dx/Rx/DC Orders Clinical Impression: Laceration of left lower leg, Left leg swelling Instructions: ED Wound Care Prescriptions: New cephalexin 500 mg capsule 500 mg PO Q6 Qty: 20 0RF No Action simvastatin 20 mg tablet 20 mg PO QHS clobetasol 0.05 % cream 1 applic topical 4XW ferrous sulfate 325 mg (65 mg iron) tablet 325 mg PO QDAY cholecalciferol (vitamin D3) 50 mcg (2,000 unit) capsule 50 mcg PO QDAY zinc gluconate 50 mg tablet 50 mg PO QDAY levothyroxine [Synthroid] 75 mcg tablet 75 mcg PO QDAY Qty: 90 3RF multivitamin with folic acid [Thera] 1 TABLET tablet 1 tab PO DAILY Primary Care Provider: Fredrick Frank Referrals: Fredrick Frank DO [Primary Care Provider] - Keep Reymundo appointment Activity Restrictions/Additional Instructions: Your wound injury over 12 hours higher risk for infection if closed. Wound is already closing. Drainage is expected. Daily wound care as discussed. Take antibiotic as prescribed. Keep your follow-up with your doctor. Print Language: Egyptian Disposition Disposition: Home, Self Care Discharge Date/Time: 10/06/24 09:22
[2024-10-06 09:21] VITALS: BP 155/68; PULSE 78; RESP 16; TEMP 36.6; O2SAT 99
== END 2024-10-06 09:22 | disposition home or self-care (01) ==
LOC: ED 09:09
PROVIDERS: Emergency Provider Emergency Medicine; PCP Family Medicine; Visit Provider Emergency Medicine
DX: S81.812A Laceration without foreign body, left lower leg, initial encounter (principal); Z87.891 Personal history of nicotine dependence; Z86.73 Personal history of transient ischemic attack (TIA), and cerebral infarction without residual deficits; X58.XXXA Exposure to other specified factors, initial encounter
CPT/HCPCS: 99282

== ENCOUNTER → 2025-01-06 | Outpatient (CLI) | payer MEDICARE, OTHER, SELFPAY ==
--- NOTE | 2025-01-06 10:35 | CDU_ITS ---
Reason For Study Reason For Study: Carotid Stenosis Rt. Velocities/BP Lt. Velocities/BP Prox CCA 64.5/10.7 cm/sec. Prox CCA 77.7/9.0 cm/sec. Mid CCA 81.5/12.6 cm/sec. Mid CCA 80.2/15.1 cm/sec. Dist CCA 83.9/14.6 cm/sec. Dist CCA 59.7/10.2 cm/sec. Prox ICA 67.4/11.3 cm/sec. Prox ICA 56.0/14.5 cm/sec. Mid ICA 130.3/31.2 cm/sec. Mid ICA 110.2/30.1 cm/sec. Dist ICA 93.5/19.3 cm/sec. Dist ICA 137.5/24.3 cm/sec. Rt. ICA/CCA = 1.6. Lt. ICA/CCA = 1.7. Prox ECA 85.0/0.0 cm/sec. Prox ECA 67.4/0.0 cm/sec. Rt. Vert. 60.5/16.3 cm/sec. Lt. Vert. 60.5/13.9 cm/sec. Right Extracranial There is homogeneous, smooth atherosclerotic plaque noted in the right common carotid artery. There is heterogeneous, irregular atherosclerotic plaque noted in the right internal carotid artery. The right internal carotid artery is very tortuous. There is heterogeneous, irregular atherosclerotic plaque noted in the right external carotid artery. Antegrade flow is noted in the right vertebral artery. Left Extracranial There is homogeneous, smooth atherosclerotic plaque noted in the left common carotid artery. There is heterogeneous, irregular atherosclerotic plaque noted in the left internal carotid artery. The left internal carotid artery is very tortuous. There is intimal thickening but no significant atherosclerotic plaque noted in the left external carotid artery. Antegrade flow is noted in the left vertebral artery. Procedure Carotid Duplex [id number]. This is a Carotid Duplex examination using B-mode, color flow and specral Doppler. Exam performed in department. VL/Carotid Duplex Ultrasound Interpretation Summary Moderate (50-69%) stenosis right extracranial internal carotid. Moderate (50-69%) stenosis left extracranial internal carotid. Patent and antegrade vertebrals bilaterally. Tortuous vessels bilateral, velocities/degree of stenosis may be artificially e levated. Ordering Physician: Fredrick Frank Referring Physician: Fredrick Frank Performed By: Mikaela Hwang, OBEDT
== END | disposition home or self-care (01) ==
LOC: CVS 10:32
PROVIDERS: PCP Family Medicine; Referring Provider Family Medicine; Visit Provider Family Medicine
DX: I65.23 Occlusion and stenosis of bilateral carotid arteries (principal)
CPT/HCPCS: 93880

== ENCOUNTER → 2025-03-15 | Outpatient (CLI) | payer MEDICARE, OTHER, SELFPAY ==
--- NOTE | 2025-03-15 15:11 | BD_ITS ---
PROCEDURE: DEXA BONE DENSITY STUDY 03/15/2025 REASON FOR EXAM: F, age 89 y/o . Patient is postmenopausal TECHNIQUE: Procedure Code: BDDBD Modality: DX Procedure: DEXA BONE DENSITY STUDY COMPARISON: DEXA examination dated 03/04/2023. FINDINGS: BMD and T-SCORES Lumbar spine: 0.903 g/cm2, T-score -1.6 Levels: L1 through L4 Change from prior: There has been a significant decrease in the bone mineral density of the lumbar spine by 3.8% since the prior study dated 03/04/2023. Left femoral neck: 0.710 g/cm2, T-score -1.3 Left total hip: 0.783 g/cm2, T-score -1.3 Change from prior: There has been a decrease in the bone mineral density of the left hip by 2.2% since the prior study dated 03/04/2023. Right femoral neck: 0.599 g/cm2, T-score -2.3 Right total hip: 0.719 g/cm2, T-score -1.3 Change from prior: There has been a decrease in the bone mineral density of the right hip by 3.1% since the prior study dated 03/04/2023. The World Health Organization has defined the following categories based on bone density: Normal bone density: T-score equal to or greater than -1.0 Osteopenia: T-score between -1.0 and -2.5 Osteoporosis: T-score equal to or less than -2.5 FRAX (or Comparable) Fracture Risk Assessment: 10 Year Probability of Fracture: Major Osteoporotic Fracture: 21% Hip Fracture: 6.7% (Note: FRAX is not to be reported in setting of normal range bone density, osteoporosis on DEXA, known history of osteoporosis, prior osteoporotic hip or vertebral fracture, or for any patient undergoing pharmacological treatment for bone loss.) The National Osteoporosis Foundation (NOF) recommends pharmacological treatment for patients with a FRAX 10-year risk of 3% or higher for a hip fracture, or 20% or higher for a major osteoporotic fracture, to prevent osteoporosis and reduce fracture risk. The patient does meet the pharmacological treatment recommendations for prevention of osteoporosis. BD/Dexa Bone Density Study IMPRESSION: OSTEOPENIA. Recommend follow-up in 1 year. Reading Location: [id number]
== END | disposition home or self-care (01) ==
LOC: OPBD 15:06
PROVIDERS: PCP Family Medicine; Referring Provider Family Medicine; Visit Provider Family Medicine
DX: Z78.0 Asymptomatic menopausal state (principal)
CPT/HCPCS: 77080